=== PATIENT | female | born 1945 | race Caucasian/White ===

== ENCOUNTER → 2016-09-23 | Outpatient (CLI) | payer MEDICARE, MEDICAID | LOC: GMAM 17:41 | PROVIDERS: ATTEND Family Medicine | DX: R30.0 Dysuria (principal) ==

== ENCOUNTER → 2016-11-25 | Outpatient (CLI) | payer MEDICARE, MEDICAID | LOC: GMAM 12:02 | PROVIDERS: ATTEND Family Medicine | DX: N18.3 Chronic kidney disease, stage 3 (moderate) (principal) ==

== ENCOUNTER → 2016-11-26 | Outpatient (CLI) | payer MEDICARE, MEDICAID | END | disposition home or self-care (01) | LOC: GMA 14:56 | PROVIDERS: ATTEND Nurse Practitioner Family | DX: R82.99 Other abnormal findings in urine (principal) ==

== ENCOUNTER 2016-12-16 07:20 | Day surgery (SDC) | payer MEDICARE, MEDICAID ==
[~2016-12-16 07:20] MED LIST: LACTATED RINGERS 1,000 ML ONE
[2016-12-16 08:07] VITALS: TEMP 98.3
--- NOTE | 2016-12-16 08:41 | OP ---
DATE OF PROCEDURE: 12/16/16 PREOPERATIVE DIAGNOSIS: 1. Personal history of colonic polyps. POSTOPERATIVE DIAGNOSIS: 1. Rectosigmoid polyp, 3 mm, resected, not retrieved, using a hot snare. 2. Diverticulosis. PROCEDURE: 1. Colonoscopy. SURGEON: Дмитрий Lozoya MD. ANESTHESIA: MAC. PROCEDURE: Informed consent was obtained prior to sedation. The preprocedure cardiopulmonary assessment was satisfactory. The patient was placed in the left lateral decubitus position and was sedated. The tip of the Olympus colonoscope was inserted in the rectum and guided through the entire colon under direct visualization. The ileocecal valve and appendiceal orifice were identified. These appeared normal. Slow withdrawal was started at this time. The ileocecal valve appeared unremarkable. Careful examination was done through the entire colon. The preparation was good. There was diverticulosis in the sigmoid colon. In the rectosigmoid area, there was a 3 mm flat polyp that was resected, but not retrieved, using a hot snare. Continuation of withdrawal showed no abnormality in the rectum except for mild grade 1 internal hemorrhoids that were not bleeding. The scope was then withdrawn from the patient and the procedure was terminated. RECOMMENDATION: 1. Cologuard stool testing in three years. 2. Repeat colonoscopy in five years if Cologuard is negative in five years. If positive, repeat colonoscopy immediately. 3. Followup with GI as needed. 4. Resume medications. 5. Resume Eliquis in 48 hours. 6. Resume diet. 7. Resume regular activity tomorrow. #[id number] [facility]
[2016-12-16 10:53] VITALS: BP 156/84; O2SAT 96
[2016-12-16] MEDS ORDERED: LIDOCAINE 1% 10 ML VIAL INJ ONE (12:00)
[2016-12-16] MEDS ORDERED: PROPOFOL 200 MG/20 ML VIAL IV ONE (12:00)
== END 2016-12-16 09:30 | disposition home or self-care (01) ==
LOC: AMB 07:20
DX: Z12.11 Encounter for screening for malignant neoplasm of colon (principal); K57.30 Diverticulosis of large intestine without perforation or abscess without bleeding; D12.7 Benign neoplasm of rectosigmoid junction; K64.0 First degree hemorrhoids; J44.9 Chronic obstructive pulmonary disease, unspecified; K21.9 Gastro-esophageal reflux disease without esophagitis; I10 Essential (primary) hypertension; E66.9 Obesity, unspecified; Z68.41 Body mass index [BMI] 40.0-44.9, adult; Z86.010 Personal history of colon polyps; Z88.0 Allergy status to penicillin; Z88.2 Allergy status to sulfonamides; Z88.8 Allergy status to other drugs, medicaments and biological substances; Z80.0 Family history of malignant neoplasm of digestive organs; Z79.899 Other long term (current) drug therapy
CPT/HCPCS: 00810; 45385; J3490; J7120

== ENCOUNTER → 2016-12-29 | Outpatient (CLI) | payer MEDICARE, MEDICAID ==
--- NOTE | 2016-12-30 09:37 | MAM ---
History: Well woman exam. Date of exam: 12/29/2016 Services provided: Bilateral full field digital screening mammography. CAD, the images were reviewed with R2 computer aided detection. FINDINGS: Glandular tissue is scattered glandular contour. Exam is compared with 2011 study. No dominant mass, architectural distortion or clustered microcalcification. IMPRESSION: Benign exam Recommendation: Routine annual mammography BIRAD CATEGORY: 2 BENIGN Electronically signed by: Tahira Jaramillo MD 12/30/2016 9:36 AM CDT
== END | disposition home or self-care (01) ==
LOC: MAMMO 14:38
PROVIDERS: ATTEND Family Medicine
DX: Z12.31 Encounter for screening mammogram for malignant neoplasm of breast (principal)

== ENCOUNTER → 2017-01-15 | Outpatient (CLI) | payer MEDICARE, MEDICAID ==
--- NOTE | 2017-01-15 23:21 | CT ---
Procedure: CT CERVICAL SPINE WITHOUT IV CONTRAST Exam date: 01/15/2017 10:28 AM CDT Ordering Provider: AG WHITAKER Clinical Indication: CERVICAL DISORDER WITH MYLEOPATHY Comparison: None Technique: Using a multislice scanner, sequential axial imaging was obtained from the skull base to the T1 level. 2-D sagittal and coronal reconstruction images were obtained. Exam was reconstructed at 2 mm slice thickness. Findings: Extensive postsurgical changes of prior interbody fusions at C4-5 and C5-C6 with solid osseous bridging across the C5-6 level with partial osseous union across the C4-5 level. There is been anterior cervical fusion constructs at C2-C3 as well as between C4 and C6. Solid osseous fusion across the facet joints at C2-3 as well as partial osseous fusion across the disc spaces C2-3. There is advanced degenerative disc changes at the nonsurgical level of C3-4 with advanced facet arthrosis and trace degenerative anterolisthesis. There is also advanced degenerative disc and facet findings at C6-C7. No acute fractures versus traumatic subluxations identified. Craniocervical relationships are maintained. No evidence of hardware fracture or hardware loosening. The vertebral body heights are nonacute. There is no lytic or sclerotic lesion. The prevertebral soft tissues are normal. IMPRESSION Extensive postsurgical changes with degenerative findings at the nonsurgical C3-C4 level and C6-C7 level as outlined above. There is no acute fracture or traumatic subluxation. Electronically signed by: Prem Hobbs MD 01/15/2017 11:20 PM CDT
== END | disposition home or self-care (01) ==
LOC: CT 10:22
PROVIDERS: ATTEND Psychiatry & Neurology Neurology
DX: M47.892 Other spondylosis, cervical region (principal)

== ENCOUNTER → 2017-01-25 | Outpatient (CLI) | payer MEDICARE, MEDICAID | END | disposition home or self-care (01) | LOC: GMA 16:46 | PROVIDERS: ATTEND Nurse Practitioner Family | DX: R06.02 Shortness of breath (principal) ==

== ENCOUNTER → 2017-03-11 | Outpatient (CLI) | payer MEDICARE, MEDICAID | END | disposition home or self-care (01) | LOC: LAB.O 14:58 | PROVIDERS: ATTEND Internal Medicine | DX: M06.4 Inflammatory polyarthropathy (principal); M35.00 Sjogren syndrome, unspecified ==

== ENCOUNTER → 2017-03-24 | Outpatient (CLI) | payer MEDICARE, MEDICAID | END | disposition home or self-care (01) | LOC: NC 13:42 | PROVIDERS: ATTEND Family Medicine | DX: I13.0 Hypertensive heart and chronic kidney disease with heart failure and stage 1 through stage 4 chronic kidney disease, or unspecified chronic kidney disease (principal); I50.9 Heart failure, unspecified; N18.3 Chronic kidney disease, stage 3 (moderate) ==

== ENCOUNTER → 2017-03-31 | Outpatient (CLI) | payer MEDICARE, MEDICAID | END | disposition home or self-care (01) | LOC: GMAM 11:36 | PROVIDERS: ATTEND Family Medicine | DX: N18.3 Chronic kidney disease, stage 3 (moderate) (principal) ==

== ENCOUNTER → 2017-05-26 | Outpatient (CLI) | payer MEDICARE, MEDICAID | LOC: ICH 13:52 | PROVIDERS: ATTEND Family Medicine | DX: R30.0 Dysuria (principal) ==

== ENCOUNTER 2017-06-05 13:16 | Emergency (ER) | payer MEDICARE, MEDICAID ==
[2017-06-05] MEDS ORDERED: SODIUM CHLORIDE 0.9% 1000ML 1,000 ML IVS ONE (13:39)
[2017-06-05 13:42] VITALS: TEMP 98.5
--- NOTE | 2017-06-05 13:42 | ED.PDOC ---
History of Present Illness - General Chief Complaint: Cardiovascular Problem Stated Complaint: Elevated BP and headache x 1 hr Time Seen by Provider: 06/05/17 13:20 Source: patient, RN notes reviewed, Vital Signs reviewed Exam Limitations: no limitations - History of Present Illness Initial Comments: Patient comes in via EMS with c/o high blood pressure and JUAREZ X 1 hour. Home health nurse told patient to come to her due to BP being high. Patient took 1gm of Tylenol prior to arrival and told the nurse her JUAREZ was gone. When I saw her she said it was coming back a little and the pain was 8/10. JUAREZ was/is all over her head but worst in her R anabaptist. Denies other symptoms. Timing/Duration: 1 hour, resolved prior to arrival Severity: moderate Location: other - JUAREZ Activities at Onset: rest Improving Factors: medication - Tylenol Worsening Factors: nothing Nitro Today/Relief: no nitro taken today Aspirin Treatment Today: no aspirin today Associated Symptoms: headaches Allergies/Adverse Reactions: Allergies Gentamicin [From Gentamicin Sulfate IV] Allergy (Verified 06/05/17 13:24) Hives Penicillins Allergy (Verified 06/05/17 13:24) Other breaks out in blisters Sulfa Antibiotics Allergy (Verified 06/05/17 13:24) Vomitting Meloxicam [From Mobic] Adverse Reaction (Severe, Verified 06/05/17 13:24) Hives Home Medications: Ambulatory Orders ALPRAZolam [Xanax] 1 mg PO PRN PRN 06/05/14 Amitriptyline HCl [Elavil] 100 mg PO BEDTIME 06/05/14 Bupropion HCl [Wellbutrin Sr] 150 mg PO BID 06/05/14 Montelukast [Singulair] 10 mg PO DAILY 06/05/14 Tiotropium [place] Monohydrate [Spiriva Handihaler] 1 puff IN DAILY 06/05/14 Buprenorphine [Butrans] 15 mcg TD WKLY 09/27/15 Polyethylene Glycol 3350 [Miralax] 17 gm PO DAILY PRN 09/27/15 Simethicone [Mylanta Gas] 80 mg PO PRN PRN 09/27/15 Folic Acid 1 mg PO DAILY 01/19/16 Ipratropium/Albuterol Inhaler [Combivent Respimat 20-100 Mcg/Act] 1 aer IN PRN PRN 01/19/16 Pantoprazole Tablet [Protonix] 40 mg PO ACBK 03/26/16 Simvastatin [Zocor] 40 mg PO BEDTIME 03/26/16 Temazepam [Restoril] 15 - 30 mg PO PRN 03/26/16 Acetaminophen [Tylenol] 500 mg PO PRN PRN 04/13/16 Apixaban [Eliquis] 5 mg PO BID 04/13/16 Nebivolol HCl [Bystolic] 5 mg PO DAILY 04/13/16 Potassium Chloride [Potassium Chloride ER] 20 meq PO TID 04/13/16 Pregabalin [Lyrica] 100 mg PO BID 04/13/16 Spironolactone 25 mg PO DAILY #30 tab 04/16/16 Diltiazem HCl 120 mg PO DAILY 05/06/16 Fluticasone/Salmeterol 250/50 [Advair Diskus] 1 puff INH BID 05/06/16 Hydrochlorothiazide 25 mg PO DAILY 05/06/16 Furosemide [Lasix] 40 mg PO DAILY 12/14/16 Review of Systems - Review of Systems Constitutional: States: no symptoms reported Respiratory: States: no symptoms reported. Denies: short of breath Cardiology: States: no symptoms reported. Denies: chest pain Gastrointestinal/Abdominal: States: no symptoms reported Musculoskeletal: States: no symptoms reported Skin: States: no symptoms reported Neurological: States: headache. 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 Hx Cancer: No Hx of HIV: No Hx Hepatitis C: No Hx MRSA: No Surgical History: appendectomy - Vaccination History Hx Tetanus, Diphtheria Vaccination: Yes Hx Influenza Vaccination: Yes Hx Pneumococcal Vaccination: Yes - Social History Hx Tobacco Use: Yes - Quit 2003 Hx Chewing Tobacco Use: No Hx Alcohol Use: No Hx Substance Use: No Hx Substance Use Treatment: No Hx Depression: No Hx Physical Abuse: No Hx Emotional Abuse: No Hx Suspected Abuse: No - Female History Patient : No Family Medical History - Family History Father Family History: No Known Living Status: Age at (years of age): 85 Cause of : colon cancer Hx Family Cancer: Yes - colon Physical Exam - Physical Exam General Appearance: Alert, Comfortable - does not appear to be in pain, No apparent distress, Well Developed, Well Groomed, Well Nourished Eyes, Ears, Nose, Throat Exam: PERRL/EOMI, normal ENT inspection, pharynx normal , other - Dry mucous membranes Neck: supple, normal inspection Respiratory: lungs clear, normal breath sounds, no respiratory distress, no accessory muscle use Cardiovascular/Chest: regular rate, rhythm, no gallop, no JVD, no murmur Extremity: non-tender, normal inspection 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 She does appear dehydrated so will give 1L NS bolus and monitor BP. 06/05/17 14:22 BP now 122/68 and JUAREZ is 2/10. Will finish IV fluids and if still doing well at that time with d/c home. 06/05/17 14:54 Vital Signs 06/05/17 06/05/17 06/05/17 13:20 13:35 14:05 Temperature 98.5 F Pulse Rate [LAC 103 H 92 H 102 H ] Respiratory 14 14 14 Rate Blood Pressure 157/81 150/79 157/81 [LEFT BRACHIAL] O2 Sat by Pulse 93 L 93 L 92 L Oximetry 06/05/17 14:35 Temperature Pulse Rate [LAC 85 ] Respiratory 14 Rate Blood Pressure 122/75 [LEFT BRACHIAL] O2 Sat by Pulse 96 Oximetry Departure - Departure Clinical Impression: Dehydration Hypertension Qualifiers: Hypertension type: essential hypertension Qualified Code(s): I10 - Essential ( primary) hypertension Headache Qualifiers: Headache type: unspecified Headache chronicity pattern: acute headache Intractability: not intractable Qualified Code(s): R51 - Headache Time of Disposition: 14:53 Disposition: Discharge to Home or Self Care Condition: Good Departure Forms: ED Discharge - Pt. Copy, Patient Portal Self Enrollment Instructions: High Blood Pressure Diet: resume usual diet Activity: increase activity as tolerated Referrals: Deshawn Alonso MD [Primary Care Provider] - 1-2 Weeks Home Medications: Ambulatory Orders ALPRAZolam [Xanax] 1 mg PO PRN PRN 06/05/14 Amitriptyline HCl [Elavil] 100 mg PO BEDTIME 06/05/14 Bupropion HCl [Wellbutrin Sr] 150 mg PO BID 06/05/14 Montelukast [Singulair] 10 mg PO DAILY 06/05/14 Tiotropium [place] Monohydrate [Spiriva Handihaler] 1 puff IN DAILY 06/05/14 Buprenorphine [Butrans] 15 mcg TD WKLY 09/27/15 Polyethylene Glycol 3350 [Miralax] 17 gm PO DAILY PRN 09/27/15 Simethicone [Mylanta Gas] 80 mg PO PRN PRN 09/27/15 Folic Acid 1 mg PO DAILY 01/19/16 Ipratropium/Albuterol Inhaler [Combivent Respimat 20-100 Mcg/Act] 1 aer IN PRN PRN 01/19/16 Pantoprazole Tablet [Protonix] 40 mg PO ACBK 03/26/16 Simvastatin [Zocor] 40 mg PO BEDTIME 03/26/16 Temazepam [Restoril] 15 - 30 mg PO PRN 03/26/16 Acetaminophen [Tylenol] 500 mg PO PRN PRN 04/13/16 Apixaban [Eliquis] 5 mg PO BID 04/13/16 Nebivolol HCl [Bystolic] 5 mg PO DAILY 04/13/16 Potassium Chloride [Potassium Chloride ER] 20 meq PO TID 04/13/16 Pregabalin [Lyrica] 100 mg PO BID 04/13/16 Spironolactone 25 mg PO DAILY #30 tab 04/16/16 Diltiazem HCl 120 mg PO DAILY 05/06/16 Fluticasone/Salmeterol 250/50 [Advair Diskus] 1 puff INH BID 05/06/16 Hydrochlorothiazide 25 mg PO DAILY 05/06/16 Furosemide [Lasix] 40 mg PO DAILY 12/14/16
[2017-06-05 15:42] VITALS: BP 153/79; O2SAT 95
== END 2017-06-05 15:40 | disposition home or self-care (01) ==
LOC: ER 13:16
DX: R51 Headache (principal); I10 Essential (primary) hypertension; E86.0 Dehydration; J44.9 Chronic obstructive pulmonary disease, unspecified; Z90.5 Acquired absence of kidney; Z87.891 Personal history of nicotine dependence; Z79.899 Other long term (current) drug therapy; Z88.0 Allergy status to penicillin; Z88.2 Allergy status to sulfonamides; Z88.8 Allergy status to other drugs, medicaments and biological substances

== ENCOUNTER → 2017-07-14 | Outpatient (CLI) | payer MEDICARE, MEDICAID | END | disposition home or self-care (01) | LOC: GMA 17:32 | PROVIDERS: ATTEND Physician Assistant | DX: R53.81 Other malaise (principal) ==

== ENCOUNTER → 2017-08-02 | Outpatient (CLI) | payer MEDICARE, MEDICAID | END | disposition home or self-care (01) | LOC: GMAM 20:13 | PROVIDERS: ATTEND Family Medicine | DX: I48.2 Chronic atrial fibrillation (principal); R06.02 Shortness of breath ==

== ENCOUNTER → 2017-08-02 | Outpatient (CLI) | payer MEDICARE, MEDICAID | LOC: NC 09:52 | PROVIDERS: ATTEND Family Medicine | DX: I13.0 Hypertensive heart and chronic kidney disease with heart failure and stage 1 through stage 4 chronic kidney disease, or unspecified chronic kidney disease (principal); I50.9 Heart failure, unspecified; N18.3 Chronic kidney disease, stage 3 (moderate); I48.91 Unspecified atrial fibrillation; J44.9 Chronic obstructive pulmonary disease, unspecified ==

== ENCOUNTER → 2017-10-14 | Outpatient (CLI) | payer MEDICARE, MEDICAID | LOC: GMAM 10:45 | PROVIDERS: ATTEND Family Medicine | DX: R94.6 Abnormal results of thyroid function studies (principal); R94.7 Abnormal results of other endocrine function studies ==

== ENCOUNTER → 2017-12-27 | Outpatient (CLI) | payer MEDICARE, MEDICAID | END | disposition home or self-care (01) | LOC: LAB.O 12-24 16:03 | PROVIDERS: ATTEND Nurse Practitioner Family | DX: M06.4 Inflammatory polyarthropathy (principal); M06.9 Rheumatoid arthritis, unspecified; M79.7 Fibromyalgia ==

== ENCOUNTER → 2017-12-29 | Outpatient (CLI) | payer MEDICARE, MEDICAID | LOC: GMAM 12:11 | PROVIDERS: ATTEND Family Medicine | DX: N18.3 Chronic kidney disease, stage 3 (moderate) (principal) ==

== ENCOUNTER → 2018-01-11 | Outpatient (CLI) | payer MEDICARE, MEDICAID | LOC: GMAJS 14:54 | PROVIDERS: ATTEND Physician Assistant | DX: R30.0 Dysuria (principal) ==

== ENCOUNTER → 2018-01-19 | Outpatient (CLI) | payer MEDICARE, MEDICAID ==
--- NOTE | 2018-01-20 15:26 | MAM ---
EXAM DESCRIPTION: 3D Screening BILATERAL : Digital Mammography. CLINICAL HISTORY: 72 years Female SCREENING . No complaints. Remote family history of breast cancer. Sister with ovarian cancer. Hysterectomy. Has taken HRT 5 or more years ago. COMPARISON: 2-D digital screening bilateral study 12/29/2016. Report from prior examination also reviewed. TECHNIQUE: Bilateral CC and MLO projection full-field images, 3-D tomosynthesis digital mammographic technique. Also bilateral synthesized CC/ MLO full-field images. CAD not utilized. FINDINGS: The breast parenchymal density pattern is: Scattered areas of fibroglandular density. No skin thickening or nipple retraction bilateral axillary lymph nodes. No focal, stellate mass or density, focal asymmetry , and no suspicious microcalcifications bilaterally. Stable mammograms compared to prior study, taking into account differences in mammographic technique IMPRESSION: BI-RADS CATEGORY: 2 - BENIGN FINDINGS. FOLLOW UP: Routine digital bilateral screening, one year interval from January 2018. Written communication explaining the IMPRESSION and follow-up, will be mailed to the patient and referring health care provider. According to the [employer], yearly mammograms are recommended starting at age 40 and continuing as long as a woman is in good health. Any breast change noted on a breast self-exam should be reported promptly to the patient's healthcare provider. Breast MRI is recommended for women with an approximately 20-25% or greater lifetime risk of breast cancer, including women with a strong family history of breast or ovarian cancer and women who have been treated for Hodgkin's disease. A negative mammographic report should not delay tissue diagnosis in patients with significant clinical history or physical findings. Extremely dense breast tissue limits the sensitivity of digital mammography. Electronically signed by: Zach Franco MD 01/20/2018 3:25 PM CDT
== END ==
LOC: MAMMO 13:52
PROVIDERS: ATTEND Family Medicine
DX: Z12.31 Encounter for screening mammogram for malignant neoplasm of breast (principal)

== ENCOUNTER → 2018-02-01 | Outpatient (CLI) | payer MEDICARE, MEDICAID | LOC: GMAM 14:38 | PROVIDERS: ATTEND Family Medicine | DX: R30.0 Dysuria (principal) ==

== ENCOUNTER → 2018-03-10 | Outpatient (CLI) | payer MEDICARE, MEDICAID | LOC: GMAM 17:38 | PROVIDERS: ATTEND Family Medicine | DX: E21.3 Hyperparathyroidism, unspecified (principal); R53.83 Other fatigue ==

== ENCOUNTER → 2018-03-30 | Outpatient (CLI) | payer MEDICARE, MEDICAID | LOC: LAB.O 10:12 | PROVIDERS: ATTEND Internal Medicine Endocrinology, Diabetes & Metabolism | DX: R10.13 Epigastric pain (principal); R19.7 Diarrhea, unspecified; E55.9 Vitamin D deficiency, unspecified; N18.9 Chronic kidney disease, unspecified; E21.3 Hyperparathyroidism, unspecified ==

== ENCOUNTER 2018-04-04 13:10 | Inpatient (IN) | payer MEDICARE, MEDICAID ==
[2018-04-04] MEDS ORDERED: ONDANSETRON INJ 4 MG/2 ML VIAL IV ONE (14:22)
[2018-04-04] MEDS ORDERED: SODIUM CHLORIDE 0.9% 1000ML 1,000 ML IVS PRN (14:22)
[2018-04-04] MEDS ORDERED: SODIUM CHLORIDE 0.9% (FLUSH) 10 ML SYG IV PRN ×2 (14:22→18:27)
[2018-04-04] MEDS ORDERED: MORPHINE SULFATE INJ 10 MG/ML VIAL IV ONE ×2 (14:24→17:53)
[2018-04-04] MEDS ORDERED: ACETAMINOPHEN 500 MG TAB PO ONE (15:12)
--- NOTE | 2018-04-04 16:04 | CT ---
Study: CT abdomen and pelvis. Indication: abd pain, nausea, diarrhea Technique: CT of the abdomen and pelvis obtained without intravenous contrast. This exam was performed according to our departmental dose-optimization program, which includes automated exposure control, adjustment of the mA and/or kV according to patient size and/or use of iterative reconstruction technique. Comparison: July 15, 2016. Findings: Emphysema at the lung bases suspected with bibasilar scarring. Heart size normal. Coronary artery and abdominal aortic atherosclerosis. Questionable mild nodularity of the liver contour which can indicate cirrhosis. Gallbladder distended with a suspected 4 mm internal gallstone posteriorly. Pancreas, spleen, adrenal glands, left kidney, and bladder unremarkable. Prior right nephrectomy redemonstrated. Uterus and ovaries are either surgically absent or small. Fluid noted throughout the colon which can be seen in a diarrheal state. There is mild wall thickening of the descending colon with mild fluid in the left paracolic gutter which can indicate colitis. No obstruction. Stomach and small bowel unremarkable. Tendinosis not visualized. No free air. No pathologically enlarged lymphadenopathy. Degenerative and post surgical changes of the spine noted. Impression: Colitis of the mid decending colon. Suspected cirrhosis. Atherosclerosis. Suspected emphysema. Prior right nephrectomy. Suspected tiny gallstone. Right upper quadrant sonogram could better evaluate as clinically indicated. Additional findings as above. Electronically signed by: Ru De Jesus MD 04/04/2018 4:03 PM CDT
--- NOTE | 2018-04-04 17:23 | ED.PDOC ---
History of Present Illness - General Chief Complaint: GI Problem Stated Complaint: diarrhea x10 days Time Seen by Provider: 04/04/18 13:48 Information Source: patient Exam Limitations: no limitations - History of Present Illness Initial Comments: PT PRESENTS TO THE ED WITH COMPLAINTS OF ABDOMINAL PAIN, DIARRHEA, GENERALIZED WEAKNESS, AND NAUSEA FOR THE PAST 10 DAYS. PT REPORTS THAT SHE SAW HER PCP LAST WEEK AND HAD BLOOD WORK DONE, BUT DOES NOT KNOW THE RESULTS OF IT. Abdominal Pain Onset Location: RLQ, epigastric Quality: sharpness Timing/Duration: days - 10 Improving Factors: nothing Associated Symptoms: diarrhea, fatigue, nausea/vomiting, weakness Review of Systems - Review of Systems Constitutional: States: chills, malaise, weakness. Denies: fever EENTM: Denies: nose congestion, throat pain Respiratory: Denies: cough, short of breath Cardiology: Denies: chest pain, palpitations Gastrointestinal/Abdominal: States: see HPI, abdominal pain, diarrhea, nausea Genitourinary: Denies: dysuria, frequency Musculoskeletal: Denies: joint pain, joint swelling Skin: Denies: dryness, lesions Neurological: Denies: headache, numbness Past Medical History (General) - Patient Medical History Hx Seizures: No Hx Stroke: No Hx Dementia: No Hx Asthma: Yes Hx of COPD: Yes Hx Cardiac Disorders: No Hx Congestive Heart Failure: Yes Hx Pacemaker: No Hx Hypertension: Yes Hx Thyroid Disease: No Hx Diabetes: No Hx Gastroesophageal Reflux: No 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 Hx Cancer: No Hx of HIV: No Hx Hepatitis C: No Hx MRSA: No - Vaccination History Hx Tetanus, Diphtheria Vaccination: Yes Hx Influenza Vaccination: Yes Hx Pneumococcal Vaccination: Yes - Social History Hx Tobacco Use: Yes - Quit 2003 Hx Chewing Tobacco Use: No Hx Alcohol Use: No Hx Substance Use: No Hx Substance Use Treatment: No Hx Depression: No Hx Physical Abuse: No Hx Emotional Abuse: No Hx Suspected Abuse: No - Female History Patient : No Family Medical History - Family History Father Family History: No Known Living Status: Age at (years of age): 85 Cause of : colon cancer Hx Family Cancer: Yes - colon Physical Exam - Physical Exam General Appearance: Alert, Ill Appearing, Well Developed, Well Groomed Eyes, Ears, Nose, Throat Exam: normal ENT inspection Neck: normal inspection Respiratory: lungs clear, normal breath sounds, no respiratory distress Cardiovascular/Chest: regular rate, rhythm, no murmur Gastrointestinal/Abdominal: soft, tenderness - IN THE EPIGASTRIC AND RLQ Back Exam: no CVA tenderness Extremity: non-tender, normal inspection Neurologic: alert, normal mood/affect, oriented x 3 Skin Exam: warm/dry, pallor Progress - Progress Progress: 04/04/18 17:27 PT REPORTS SOME IMPROVEMENT IN SYMPTOMS AFTER MORPHINE AND ZOFRAN. RATES PAIN AT 5/10 AT THIS TIME. LABS AND DIAGNOSTIC STUDIES DISCUSSED. - Results/Orders Results/Orders: Laboratory Tests 04/04/18 04/04/18 04/04/18 14:30 14:45 14:45 WBC 7.8 RBC 3.74 L Hgb 11.5 L Hct 34.6 L MCV 92.5 MCH 30.7 MCHC 33.2 RDW 14.8 H Plt Count 205 MPV 10.6 H Absolute Neuts (auto) 6.20 Absolute Lymphs (auto) 0.50 L Absolute Monos (auto) 1.00 H Absolute Eos (auto) 0.10 Absolute Basos (auto) 0.00 Neutrophils % 79.0 H Lymphocytes % 6.9 L Monocytes % 12.9 H Eosinophils % 0.8 L Basophils % 0.4 Sodium 136 Potassium 4.4 Chloride 105 Carbon Dioxide 21 Anion Gap 14.4 BUN 8 Creatinine 0.88 BUN/Creatinine Ratio 9.1 L Random Glucose 100 Serum Osmolality 270.4 L Calcium 8.9 Total Bilirubin 1.3 H Direct Bilirubin 0.4 H Indirect Bilirubin 0.9 H AST 31 ALT 18 Alkaline Phosphatase 67 Serum Total Protein 7.2 Albumin 3.2 Lipase 15 L Urine Color Yellow Urine Appearance Clear Urine pH 6.0 Ur Specific Gerald 1.025 Urine Protein 30 Urine Glucose (UA) Negative Urine Ketones 15 H Urine Blood Negative Urine Nitrite Negative Urine Bilirubin Small H Urine Urobilinogen 1.0 Ur Leukocyte Esterase Negative Urine RBC 0-1 Urine WBC 1-3 Ur Epithelial Cells 10-20 Amorphous Sediment 2+ Urine Bacteria 1+ Urine Mucus Large Stool Occult Blood 04/04/18 16:27 WBC RBC Hgb Hct MCV MCH MCHC RDW Plt Count MPV Absolute Neuts (auto) Absolute Lymphs (auto) Absolute Monos (auto) Absolute Eos (auto) Absolute Basos (auto) Neutrophils % Lymphocytes % Monocytes % Eosinophils % Basophils % Sodium Potassium Chloride Carbon Dioxide Anion Gap BUN Creatinine BUN/Creatinine Ratio Random Glucose Serum Osmolality Calcium Total Bilirubin Direct Bilirubin Indirect Bilirubin AST ALT Alkaline Phosphatase Serum Total Protein Albumin Lipase Urine Color Urine Appearance Urine pH Ur Specific Gerald Urine Protein Urine Glucose (UA) Urine Ketones Urine Blood Urine Nitrite Urine Bilirubin Urine Urobilinogen Ur Leukocyte Esterase Urine RBC Urine WBC Ur Epithelial Cells Amorphous Sediment Urine Bacteria Urine Mucus Stool Occult Blood Positive - EKG/XRAY/CT EKG: Sinus - @75 BPM, NL INTERVALS, NL AXIS, no ST T wave changes, Unchanged from - 03/26/2016 CT: CT ABD: COLITIS, POSSIBLE CHOLELITHIASIS, PER RAD CT Ordered: Yes CT Interpretation Call Back: No Departure - Departure Clinical Impression: Acute diarrhea, Colitis, Dehydration Time of Disposition: 17:31 Disposition: Admit Patient Condition: Fair Departure Forms: ED Discharge - Pt. Copy, Patient Portal Self Enrollment Referrals: Deshawn Alonso MD [Primary Care Provider] - 1-2 Weeks Home Medications: Ambulatory Orders ALPRAZolam [Xanax] 1 mg PO PRN PRN 06/05/14 Amitriptyline HCl [Elavil] 100 mg PO BEDTIME 06/05/14 Bupropion HCl [Wellbutrin Sr] 150 mg PO BID 06/05/14 Montelukast [Singulair] 10 mg PO DAILY 06/05/14 Tiotropium [place] Monohydrate [Spiriva Handihaler] 1 puff IN DAILY 06/05/14 Buprenorphine [Butrans] 15 mcg TD WKLY 09/27/15 Polyethylene Glycol 3350 [Miralax] 17 gm PO DAILY PRN 09/27/15 Simethicone [Mylanta Gas] 80 mg PO PRN PRN 09/27/15 Folic Acid 1 mg PO DAILY 01/19/16 Ipratropium/Albuterol Inhaler [Combivent Respimat 20-100 Mcg/Act] 1 aer IN PRN PRN 01/19/16 Pantoprazole Tablet [Protonix] 40 mg PO ACBK 03/26/16 Simvastatin [Zocor] 40 mg PO BEDTIME 03/26/16 Temazepam [Restoril] 15 - 30 mg PO PRN 03/26/16 Acetaminophen [Tylenol] 500 mg PO PRN PRN 04/13/16 Apixaban [Eliquis] 5 mg PO BID 04/13/16 Nebivolol HCl [Bystolic] 5 mg PO DAILY 04/13/16 Potassium Chloride [Potassium Chloride ER] 20 meq PO TID 04/13/16 Pregabalin [Lyrica] 100 mg PO BID 04/13/16 Spironolactone 25 mg PO DAILY #30 tab 04/16/16 Diltiazem HCl 120 mg PO DAILY 05/06/16 Fluticasone/Salmeterol 250/50 [Advair Diskus] 1 puff INH BID 05/06/16 Hydrochlorothiazide 25 mg PO DAILY 05/06/16 Furosemide [Lasix] 40 mg PO DAILY 12/14/16 Decision To Admit - Decistion To Admit Decision to Admit Reason: Admit from ER Decision to Admit Date: 04/04/18 Decision to Admit Time: 17:31 - CASE DISCUSSED WITH ASHLEY MCNALLY NP WHO AGREES TO ADMIT
--- NOTE | 2018-04-04 17:47 | HP ---
SUPERVISING PHYSICIAN: Dale Jones M.D. CHIEF COMPLAINT: Diarrhea. HISTORY OF PRESENT ILLNESS: This is a 72 year-old female with an extensive past medical history who came to the hospital for diarrhea basically since March 25. She states she has some nausea and vomiting along the way as well with that stopping a couple of days ago. She continues to have the diarrhea and thus came to the Emergency Room. In the Emergency Room her workup included not only labs but CT Scan of the abdomen and pelvis. CT scan of the abdomen and pelvis revealed a mid descending colon colitis but no surgical indication was noted. Her labs were pretty much unremarkable although she did have a left shift with 79% neutrophils. White count was normal. She had a hemoglobin of 11.5. It should be noted that the patient has a history of rheumatoid arthritis and is on Arava. She is no longer taking any steroids. She had a stool sample sent to the lab out of the Emergency Room and so far negative for Clostridium Difficile, however fecal leukocyte positive. So far vital signs have been acceptable. She did have a fever in the Emergency Room of 99.7 but it has now come back down to 98.1. PAST MEDICAL HISTORY: 1. Atrial fibrillation. 2. Congestive heart failure. 3. Hyperlipidemia. 4. Hypertension. 5. Chronic obstructive pulmonary disease. 6. Rheumatoid arthritis for which she sees Dr. Montgomery in [place]. 7. Cervical disc disease with cervical radiculopathy. 8. Lumbar radiculopathy as well. 9. Chronic inflammatory demyelinating polyneuritis. PAST SURGICAL HISTORY: 1. Right sided hernia repair. 2. Cervical spine fusion. 3. Lumbar spine fusion times 2. 4. Right kidney nephrectomy. 5. Hysterectomy. 6. Colonoscopy. CURRENT MEDICATIONS: 1. Linzess 290 mcg once daily when needed. 2. Protonix 40 mg p.o. daily. 3. Spironolactone 25 mg 2 tabs by mouth daily. 4. Temazepam 30 mg by mouth at bedtime. 5. Prolia 60 mg subcutaneously every 6 months. 6. MiraLAX 17 grams, 1 packet in 8 ounces of water daily. 7. Ventolin 90 mcg one puff by mouth as needed. 8. Wellbutrin 150 mg tablet sustained release 2 tabs by mouth b.i.d. 9. Advair 250/50 one puff b.i.d. 10. Singulair 10 mg p.o. daily. 11. Spiriva 18 mcg capsule 1 puff daily. 12. Acetaminophen 500 mg 1 to 2 tabs by mouth every 6 hours p.r.n. 13. Eliquis 5 mg p.o. b.i.d. 14. Xanax 1 mg 1 tab every day. 15. Arava 20 mg 1 tab daily. 16. Bystolic 5 mg every morning. 17. Vitamin D3, 2000 mg daily. 18. Myrbetriq SR 25 mg daily. 19. Folic acid 1 mg b.i.d. 20. Hydroxychloroquine 200 mg b.i.d. ALLERGIES: ADHESIVE, ATENOLOL, GENTAMICIN, METHOTREXATE, PENICILLIN, MOBIC, SULFONAMIDE, CODEINE, OXYCODONE, TOPAMAX AND PLAQUENIL. FAMILY HISTORY: Colon cancer in her father, maternal grandfather, paternal uncle and paternal aunt. Positive for asthma in her sister. Cirrhosis in her mother. Mother at 72 of cirrhosis. SOCIAL HISTORY: The patient quit smoking in 2003. No alcohol. No illicit drugs. She is disabled. REVIEW OF SYSTEMS: CONSTITUTIONAL: Positive for fever. No chills. No recent weight loss or weight gain. HEENT: No headaches, vision changes, ear pain, nasal congestion or throat pain. RESPIRATORY: No cough or hemoptysis. No pleuritic chest pain. She has had some shortness of breath but this is chronic for her. CARDIOVASCULAR: The patient has no chest pain. No palpitations. She does have peripheral edema but that is chronic for her. GASTROINTESTINAL: Positive for nausea and vomiting, diarrhea. No constipation. She has had some abdominal pain on the right. GENITOURINARY: No dysuria, frequency or flank pain. MUSCULOSKELETAL: No joint pain, joint swelling, but she has had some back pain which is chronic. HEMATOLOGIC: Positive for easy bruising but no transfusion reaction. ENDOCRINE: No polydipsia, polyuria or polyphagia. No heat or cold intolerance. NEUROLOGIC: No syncope, paresthesias or seizures. INTEGUMENT: No rashes, lesions or wounds. PHYSICAL EXAMINATION: VITAL SIGNS: Blood pressure 114/69, heart rate 69, respiratory rate 18, temperature 98.1, oxygen saturation 97%. GENERAL: Ms. Donaldson is a 72 year-old female who is acutely ill in appearance at this point. HEENT: Head is normocephalic and atraumatic. EYES: Pupils are equal and reactive. NOSE: No drainage. THROAT: With dry mucosa. NECK: Supple. Midline trachea. There is no visible jugular venous distention. CHEST: Symmetrical with equal rise and fall of the chest with inspiration and expiration. Lung sounds are a little bit diminished in the bases but otherwise clear to auscultation bilaterally. CARDIOVASCULAR: Regular rate and rhythm. Normal S1 and S2. ABDOMEN: Soft, obese. Positive bowel sounds. No visible distention. There is some right sided tenderness to palpation. No rebound tenderness but the abdomen is soft. GENITOURINARY: Deferred. EXTREMITIES: Lower extremities with 1+ edema. Pulses are 2+. Capillary refill less than 2 seconds. NEUROLOGIC: The patient is alert and oriented. Moves all extremities. Extraocular movements are intact. LABORATORY: Labs and films are discussed in the history of present illness. ASSESSMENT: 1. Right mid descending colitis. 2. Diarrhea. 3. Dehydration. 4. History of rheumatoid arthritis on immunosuppressant medications. 5. Chronic anemia. 6. History of chronic obstructive pulmonary disease without an acute exacerbation. 7. History of hypertension with a currently controlled blood pressure. 8. History of atrial fibrillation on chronic Eliquis therapy. PLAN: At this point the patient is having controlled pain but evidence of colitis on CT scan and on physical exam. Will place her on empiric antibiotics and get blood cultures as well. She is on immunosuppressant medications so we need to treat this as though it is infectious. I am also placing her on IV fluids. She does have sclerosis so there is always the possibility this is ischemic in nature. Will continue to monitor her progress and if she worsens we can get a surgical consultation. I am going to restart her Eliquis and put her on GI ulcer prophylaxis as well. I will restart her home medications once they are verified in the computer. Although her labs are pretty much unremarkable as stated above she is immunocompromised and I feel like she does have an infectious colitis at this time. I have ordered additional tests be run on the stool as well. [facility][id number] [facility]
[2018-04-04] MEDS ORDERED: ONDANSETRON INJ 4 MG/2 ML VIAL IV PRN (18:27)
[2018-04-04] MEDS ORDERED: levoFLOXacin 500MG IV 100 ML IVPB ONE (18:55)
[2018-04-04] MEDS: levoFLOXacin 500MG IV 500 MG in PREMIX BAG 1 BAG IVPB SCH (18:58)
[2018-04-04] MEDS ORDERED: PANTOPRAZOLE SODIUM IV 40 MG VIAL IV SCH (19:00)
[2018-04-04] MEDS ORDERED: metroNIDAZOLE IV PREMIX 500MG 100 ML IVPB ONE (19:21)
[2018-04-04] MEDS: IV SET AND CAP CHANGE INJ INJ SCH (19:29)
[2018-04-04] MEDS: SODIUM CHLORIDE 0.9% 1000ML 1,000 ML IVS PRN (19:32)
[2018-04-04] MEDS: metroNIDAZOLE IV PREMIX 500MG 500 MG in PREMIX BAG 1 BAG IVPB SCH (20:14)
[2018-04-04] MEDS ORDERED: ALPRAZolam 0.5 MG TAB PO PRN (21:07)
[2018-04-04] MEDS ORDERED: NON-FORMULARY MEDICATION 1 EA MIS (Denosumab [Prolia] 60 MG) SC SCH (21:15)
[2018-04-04] MEDS ORDERED: ALBUTEROL SULFATE 2.5 MG/3 ML VIAL NEB PRN (21:42)
[2018-04-04] MEDS: TEMAZEPAM 15 MG CAP PO SCH (22:22)
[2018-04-04] MEDS ORDERED: APIXABAN 2.5 MG TAB PO ONE (22:30)
[2018-04-05] MEDS ORDERED: metroNIDAZOLE IV PREMIX 500MG 100 ML IVPB ONE ×4 (02:52→19:54)
[2018-04-05] MEDS: metroNIDAZOLE IV PREMIX 500MG 500 MG in PREMIX BAG 1 BAG IVPB SCH ×3 (03:00→18:49)
[2018-04-05] MEDS: SODIUM CHLORIDE 0.9% 1000ML 1,000 ML IVS PRN (06:04)
[2018-04-05] MEDS: FLUTICASONE/SALMETEROL 250/50 14 PUFF/17 GM INH INH SCH ×2 (08:35→20:24)
[2018-04-05] MEDS: TIOTROPIUM INHALER INH SCH (08:35)
[2018-04-05] MEDS: NON-FORMULARY MEDICATION 1 EA MIS (Mirabegron [Myrbetriq] 25 MG) PO SCH (09:00)
[2018-04-05] MEDS ORDERED: NON-FORMULARY MEDICATION 1 EA MIS (Apixaban [Eliquis] 5 MG) PO SCH (09:00)
[2018-04-05] MEDS ORDERED: NEBIVOLOL 2.5 MG TAB ONE (09:28)
[2018-04-05] MEDS: FOLIC ACID 1 MG TAB PO SCH ×2 (10:36→20:31)
[2018-04-05] MEDS: SPIRONOLACTONE 25 MG TAB PO SCH (10:36)
[2018-04-05] MEDS: MONTELUKAST 10 MG TAB PO SCH (10:36)
[2018-04-05] MEDS: PANTOPRAZOLE SODIUM TAB 40 MG PO SCH (10:36)
[2018-04-05] MEDS: NON-FORMULARY MEDICATION 1 EA MIS (Nebivolol Hcl [Bystolic] 5 MG) PO SCH ×2 (10:38→10:57)
--- NOTE | 2018-04-05 10:46 | PN ---
SUPERVISING PHYSICIAN: Dale Jones MD DATE: 04/05/18 SUBJECTIVE: The patient states she does feel a little bit better than she did yesterday, but still is having bouts of diarrhea. She still has residual abdominal pain although it is less than yesterday. She is not having any nausea or vomiting and is tolerating the clear liquid diet fair at this time. OBJECTIVE: VITAL SIGNS: Blood pressure 101/58. Heart rate 82. Respiratory rate 18. Temperature 98.2. Oxygen saturation 96%. GENERAL: Ms. Donaldson is a 72-year-old female in no active distress. NEUROLOGIC: Alert and oriented. LUNGS: Clear to auscultation bilaterally. CARDIOVASCULAR: Regular rate and rhythm. Normal S1, S2. ABDOMEN: Still obese, but soft. Positive bowel sounds. Minimal right sided tenderness to palpation. GENITOURINARY: Deferred. EXTREMITIES: Lower extremities with 2+ pulses. Capillary refill is less than 2 seconds. LABORATORY: White count 6.3, hemoglobin 10.3, hematocrit 31.2, platelet count 171. There is no left shift on the CBC. Chemistry is unremarkable, but does show normalization of the bilirubin at 7.7 whereas yesterday it was 1.3. So far blood cultures are still pending as well as stool studies that were ordered yesterday on top of the C. difficile and fecal leukocytes are send outs, so they are not resulted as of yet. ASSESSMENT: 1. Right sided mid descending colitis. 2. Diarrhea. 3. Dehydration. 4. History of rheumatoid arthritis on immunosuppressant medications. 5. Chronic anemia. 6. History of chronic obstructive pulmonary disease without an acute exacerbation. 7. History of hypertension with a currently controlled blood pressure. 8. History of atrial fibrillation on chronic Eliquis therapy. PLAN: At this point, her blood work remains stable. However, as stated before , she is on immunosuppressant medications on a chronic basis. Therefore, we cannot totally rely on her lab work being abnormal as being indicative of infection. We will continue the Levaquin and Flagyl at this time. She seems to be improving slowly, so we will continue these and watch for results of the blood cultures and stool studies. I am going to increase her diet to full liquid today and see how she does with that. I will recheck her labs tomorrow. I am going to change her IV fluids to include potassium as she has had a bit of a decline in potassium although it is still within normal limits. #[id number] [facility]
[2018-04-05] MEDS: CHOLECALCIFEROL 2,000 IU TAB PO SCH (12:09)
[2018-04-05] MEDS: KCL 20 MEQ/NS 1,000 ML IVS PRN (16:30)
[2018-04-05] MEDS ORDERED: levoFLOXacin 500MG IV 100 ML IVPB ONE (17:22)
[2018-04-05] MEDS: levoFLOXacin 500MG IV 500 MG in PREMIX BAG 1 BAG IVPB SCH (17:46)
[2018-04-05] MEDS: APIXABAN 2.5 MG TAB PO SCH (20:30)
[2018-04-05] MEDS: ACETAMINOPHEN 500 MG TAB PO PRN (23:51)
[2018-04-06] MEDS: TEMAZEPAM 15 MG CAP PO SCH (00:06)
[2018-04-06] MEDS: metroNIDAZOLE IV PREMIX 500MG 500 MG in PREMIX BAG 1 BAG IVPB SCH ×3 (02:54→18:31)
[2018-04-06] MEDS: KCL 20 MEQ/NS 1,000 ML IVS PRN ×2 (04:34→14:32)
[2018-04-06] MEDS ORDERED: metroNIDAZOLE IV PREMIX 500MG 100 ML IVPB ONE ×3 (07:34→19:26)
[2018-04-06] MEDS: FLUTICASONE/SALMETEROL 250/50 14 PUFF/17 GM INH INH SCH ×2 (08:27→21:21)
[2018-04-06] MEDS: TIOTROPIUM INHALER INH SCH (08:27)
[2018-04-06] MEDS: SPIRONOLACTONE 25 MG TAB PO SCH (09:39)
[2018-04-06] MEDS: NEBIVOLOL 2.5 MG TAB PO SCH (09:39)
[2018-04-06] MEDS: FOLIC ACID 1 MG TAB PO SCH ×2 (09:40→22:02)
[2018-04-06] MEDS: APIXABAN 2.5 MG TAB PO SCH ×2 (09:40→22:04)
[2018-04-06] MEDS: NON-FORMULARY MEDICATION 1 EA MIS (Mirabegron [Myrbetriq] 25 MG) PO SCH (09:41)
[2018-04-06] MEDS: PANTOPRAZOLE SODIUM TAB 40 MG PO SCH (09:42)
[2018-04-06] MEDS: MONTELUKAST 10 MG TAB PO SCH (09:42)
[2018-04-06] MEDS: ACETAMINOPHEN 500 MG TAB PO PRN ×2 (09:43→22:01)
[2018-04-06] MEDS: CHOLECALCIFEROL 2,000 IU TAB PO SCH (09:43)
[2018-04-06] MEDS ORDERED: POTASSIUM CHLORIDE 20 MEQ TAB PO ONE ×2 (10:19→11:00)
[2018-04-06] MEDS ORDERED: POTASSIUM CHLORIDE 20 MEQ TAB ONE (10:36)
[2018-04-06] MEDS: KCL 20MEQ/0.45% NS 1,000 ML IVS PRN (15:03)
--- NOTE | 2018-04-06 15:12 | US ---
EXAM DESCRIPTION: Abdomen,Complete: Ultrasound. CLINICAL HISTORY: abd pain COMPARISON: None Available. TECHNIQUE: Transabdominal scannin-dimensional and Doppler modes. FINDINGS: Gallbladder: Visualized supine but difficult visualization left lateral decubitus. No echogenic stones or sludge. Wall thickness 2.6 mm with no fluid. Nontender with transducer pressure. Common bile duct: 8.9 mm which is dilated. Liver: 9.4 cm long axis right lobe. Normal echogenicity. Scalloped edges of the liver. Portal vein normal caliber and hepatopedal flow. No duct dilation. No ascites. Pancreas: Normal size and echogenicity. Duct not seen.. Abdominal aorta: 2.1 cm proximal and 1.9 cm mid. Distal aorta obscured by intestinal gas. IVC: visualized; normal caliber. Spleen normal echogenicity; long axis measurement is 10.3 cm. cm. Right kidney: Prior nephrectomy. Left kidney: 10.3 cm long axis. Normal cortical thickness and echogenicity. No hydronephrosis. IMPRESSION: 1. Normal ultrasound of the gallbladder but difficult to visualize and left lateral decubitus position. Common bile duct dilated, and intraluminal stones or sludge cannot be excluded. Consider radionuclide hepatobiliary imaging. 2. Liver small with scalloped edges but normal echogenicity. Is there history of cirrhosis or other chronic liver conditions? Normal portal vein size and flow. Normal intrahepatic ducts. No cirrhosis. Normal ultrasound of the pancreas. 3. normal ultrasound of the left kidney and spleen. Prior right nephrectomy. Normal caliber of the proximal and mid abdominal aorta and the IVC. Distal aorta obscured by intestinal gas. Electronically signed by: Zach Franco MD 04/06/2018 3:11 PM CDT
--- NOTE | 2018-04-06 16:41 | PN ---
DATE: 04/06/18 SUPERVISING PHYSICIAN: Guero Wood M.D. SUBJECTIVE: The patient is lying in bed. Continue complaints of diffuse abdominal pain but most prominently in the epigastric area. She has had no vomiting but she does get a little bit nauseous even with her clear liquid diet , although her appetite is getting better and she is somewhat hungry. Otherwise denies shortness of breath, chest pain. OBJECTIVE: VITAL SIGNS: She is afebrile, heart rate 75, blood pressure 127/71, respiratory rate 20, O2 sat 96% on room air. Intake 2600 mL, output 1500 mL for an 1100 positive balance. RESPIRATORY: Essentially clear to auscultation bilaterally. CARDIAC: Regular rate and rhythm. ABDOMEN: Very mildly but diffusely tender. It is slightly more tender in the epigastric area. There is no rebound tenderness or guarding. Bowel sounds are positive. NEUROLOGIC: She is awake, alert and oriented times three. LABORATORY: WBCs are 5.7 with a stable hemoglobin and history of 10.5 and 32.3. Sodium 139, potassium is slightly low at 3.5, chloride 112, BUN is less than 5, creatinine 0.9. Serum osmolality is 273.6. Stool studies are still pending. Preliminary blood cultures show no growth after 24 hours. All other labs and films have been reviewed via the EMR. ASSESSMENT: 1. Right sided mid descending colitis. 2. Diarrhea. 3. Dehydration. 4. History of rheumatoid arthritis on immunosuppressant medications. 5. Chronic anemia. 6. History of chronic obstructive pulmonary disease without an acute exacerbation. 7. History of hypertension with a currently controlled blood pressure. 8. History of atrial fibrillation on chronic Eliquis therapy. PLAN: We will continue present supportive care. I will continue her on clear liquids at this time and we will obtain a complete abdominal ultrasound as she still remains quite tender in the abdomen, especially epigastric area. After the results of the sonogram, I will talk to Dr. Zapata, general surgeon, or GI if indicated. Will continue her present antibiotic therapy. Hopefully we can advance her diet tonight or tomorrow. Will continue to monitor her closely and follow as needed. Dr. Wood is the collaborating physician available for consultation. #[id number] [facility]
[2018-04-06] MEDS ORDERED: levoFLOXacin 500MG IV 100 ML IVPB ONE (18:07)
[2018-04-06] MEDS: levoFLOXacin 500MG IV 500 MG in PREMIX BAG 1 BAG IVPB SCH (18:10)
[2018-04-06] MEDS ORDERED: PROMETHAZINE HCL INJ 25 MG in SODIUM CHLORIDE 0.9% 50ML 50 ML IVPB ONE (21:18)
[2018-04-06] MEDS ORDERED: SODIUM CHLORIDE 0.9% 50ML 50 ML ONE (21:20)
[2018-04-06] MEDS ORDERED: PROMETHAZINE HCL INJ 25 MG/ML VIAL ONE (21:20)
[2018-04-07] MEDS: TEMAZEPAM 15 MG CAP PO SCH (02:04)
[2018-04-07] MEDS: metroNIDAZOLE IV PREMIX 500MG 500 MG in PREMIX BAG 1 BAG IVPB SCH ×3 (02:32→19:03)
--- NOTE | 2018-04-07 07:50 | RAD ---
EXAM DESCRIPTION: Abdomen Flat Upright CLINICAL HISTORY: colitis COMPARISON: None TECHNIQUE: AP radiographs of the abdomen supine upright. Inferior lungs.. FINDINGS: No free air under the diaphragms. Lung bases are clear. Gas throughout the small bowel but no distention. Diffuse gas in the colon with minimal gas mostly fluid descending colon and rectosigmoid. Surgical clips right upper quadrant. Fusion construct L5-S1 including central screw fusion. IMPRESSION: Probable bowel stasis. Small bowel obstruction unlikely. Possible diarrhea distal colon. No free air. Electronically signed by: Zach Franco MD 04/07/2018 7:49 AM CDT
[2018-04-07] MEDS: FLUTICASONE/SALMETEROL 250/50 14 PUFF/17 GM INH INH SCH ×2 (08:03→20:42)
[2018-04-07] MEDS: TIOTROPIUM INHALER INH SCH (08:03)
[2018-04-07] MEDS ORDERED: metroNIDAZOLE IV PREMIX 500MG 100 ML IVPB ONE ×3 (09:00→20:00)
[2018-04-07] MEDS ORDERED: TEMAZEPAM 15 MG CAP PO PRN (10:00)
[2018-04-07] MEDS: APIXABAN 2.5 MG TAB PO SCH ×2 (10:03→20:35)
[2018-04-07] MEDS: PANTOPRAZOLE SODIUM TAB 40 MG PO SCH (10:03)
[2018-04-07] MEDS: FOLIC ACID 1 MG TAB PO SCH ×2 (10:03→20:36)
[2018-04-07] MEDS: MONTELUKAST 10 MG TAB PO SCH (10:03)
[2018-04-07] MEDS: SPIRONOLACTONE 25 MG TAB PO SCH (10:04)
[2018-04-07] MEDS: NON-FORMULARY MEDICATION 1 EA MIS (Mirabegron [Myrbetriq] 25 MG) PO SCH (10:06)
[2018-04-07] MEDS: NEBIVOLOL 2.5 MG TAB PO SCH (10:14)
[2018-04-07] MEDS: CHOLECALCIFEROL 2,000 IU TAB PO SCH (10:16)
[2018-04-07] MEDS ORDERED: BISACODYL SUPPOSITORY 10 MG PR ONE (10:29)
[2018-04-07] MEDS: METOCLOPRAMIDE HCL INJ 10 MG/2 ML VIAL IV SCH ×3 (10:30→22:32)
--- NOTE | 2018-04-07 11:51 | PN ---
SUPERVISING PHYSICIAN: Guero Wood M.D. DATE: 04/07/18 SUBJECTIVE: The patient is lying in bed. She is asleep and awakens easily. She continues complaints of nausea as well as some right lower quadrant abdominal pain. She has had several bouts of diarrhea, but that has improved. She actually had some vomiting with her nausea overnight and required some Phenergan in addition to her Zofran. We discussed her plan of care. OBJECTIVE: VITAL SIGNS: Afebrile. Heart rate 83. Blood pressure 132/80. Respiratory rate 18. O2 saturation 95% on room air. RESPIRATORY: Essentially clear to auscultation bilaterally. CARDIAC: Regular rate and rhythm. GASTROINTESTINAL: Abdomen is soft. It is slightly diffusely tender, but mostly on the right lower quadrant. There is no rebound tenderness or guarding. Bowel sounds are slightly hypoactive. NEUROLOGIC: She is awake, alert and oriented times three. LABORATORY: CBC is basically unchanged with a normal white count of 7.8. Chemistries show a chloride of 114, bilirubin 0.6, serum total protein 6.2. Her stool for Giardia is negative. The remainder of her stool studies are pending. Preliminary blood cultures show no growth after 48 hours. Her abdominal x-ray shows probable bowel stasis, small bowel obstruction unlikely, possibly diarrhea in the distal colon, no free air. Her abdominal ultrasound from yesterday shows normal ultrasound of the gallbladder, but difficult to visualize. The common bile duct is dilated and intraluminal stones or sludge cannot be excluded. Consider radionucleotide hepatobiliary imaging. Liver small with scalloped edges, but normal echogenicity, question if there is a history of cirrhosis or other chronic liver issues with a normal portal vein size and flow. Normal ultrasound of the pancreas. Normal ultrasound of the left kidney and spleen, prior right nephrectomy. All other labs and films have been reviewed via the EMR. ASSESSMENT: 1. Right sided mid descending colitis. 2. Diarrhea. 3. Nausea that continues, may be due to colonic stasis. 4. Dehydration. 5. History of rheumatoid arthritis on immunosuppressant medications. 6. Chronic anemia. 7. History of chronic obstructive pulmonary disease without exacerbation. 8. History of hypertension. 9. History of atrial fibrillation on chronic Eliquis therapy. PLAN: We will continue present supportive care. I discussed her case with Dr. Zapata and he may see her later in consult. After reviewing the records as well as her films, he recommended a Dulcolax suppository as well as Reglan, which I have ordered both. I have also ordered a physical therapy evaluation for safety as well as frequent ambulation as that may help the stasis of her colon by ambulating frequently. 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 Some of her symptoms may be due to those medications. Otherwise, I have ordered some lab for in the morning and another abdominal x-ray. Will continue to monitor her closely and follow as needed. Dr. Wood is the collaborating physician available for consultation. [facility][id number] [facility]
[2018-04-07] MEDS ORDERED: levoFLOXacin 500MG IV 100 ML IVPB ONE (17:24)
[2018-04-07] MEDS: levoFLOXacin 500MG IV 500 MG in PREMIX BAG 1 BAG IVPB SCH (17:32)
[2018-04-07] MEDS: IV SET AND CAP CHANGE INJ INJ SCH (19:05)
[2018-04-07] MEDS: ACETAMINOPHEN 500 MG TAB PO PRN (20:42)
[2018-04-07] MEDS: KCL 20MEQ/0.45% NS 1,000 ML IVS PRN (20:47)
[2018-04-08] MEDS: TEMAZEPAM 15 MG CAP PO PRN (00:28)
[2018-04-08] MEDS: metroNIDAZOLE IV PREMIX 500MG 500 MG in PREMIX BAG 1 BAG IVPB SCH ×3 (02:59→19:06)
[2018-04-08] MEDS: METOCLOPRAMIDE HCL INJ 10 MG/2 ML VIAL IV SCH ×3 (04:33→17:21)
--- NOTE | 2018-04-08 07:44 | RAD ---
EXAM DESCRIPTION: Abdomen Flat Upright CLINICAL HISTORY: abd pain COMPARISON: April 07, 2018 FINDINGS: AP supine and upright views of the abdomen show a nonspecific, nonobstructive bowel gas pattern with no evidence for free intraperitoneal air. Multiple surgical clips throughout the right midabdomen are seen. No air-filled dilated loops of small bowel are seen. No significant air-fluid levels are identified. Less air-filled loops of bowel are seen on today's exam. No obvious organomegaly is seen. No abnormal calcifications are seen in the expected location of the renal collecting systems. Visualized lung bases show indistinctness of the right hemidiaphragm that could represent scarring or atelectasis unchanged from previous. Postsurgical changes to the lower lumbar spine and degenerative changes of the spine are seen. IMPRESSION: Nonspecific abdominal series. There are less air-filled dilated loops of bowel compared to previous exam. Electronically signed by: Amado Padilla MD 04/08/2018 7:42 AM CDT
[2018-04-08] MEDS: TIOTROPIUM INHALER INH SCH (08:07)
[2018-04-08] MEDS: FLUTICASONE/SALMETEROL 250/50 14 PUFF/17 GM INH INH SCH ×2 (08:07→20:48)
[2018-04-08] MEDS ORDERED: metroNIDAZOLE IV PREMIX 500MG 0 ML IVPB ONE (08:46)
[2018-04-08] MEDS: CHOLECALCIFEROL 2,000 IU TAB PO SCH (09:50)
[2018-04-08] MEDS: APIXABAN 2.5 MG TAB PO SCH ×2 (09:50→21:04)
[2018-04-08] MEDS: MONTELUKAST 10 MG TAB PO SCH (09:50)
[2018-04-08] MEDS: FOLIC ACID 1 MG TAB PO SCH ×2 (09:50→21:04)
[2018-04-08] MEDS: PANTOPRAZOLE SODIUM TAB 40 MG PO SCH (09:50)
[2018-04-08] MEDS: NON-FORMULARY MEDICATION 1 EA MIS (Mirabegron [Myrbetriq] 25 MG) PO SCH (09:51)
[2018-04-08] MEDS: NEBIVOLOL 2.5 MG TAB PO SCH (09:53)
[2018-04-08] MEDS: SPIRONOLACTONE 25 MG TAB PO SCH (09:53)
[2018-04-08] MEDS: ACETAMINOPHEN 500 MG TAB PO PRN ×2 (09:54→21:06)
[2018-04-08] MEDS ORDERED: BISACODYL SUPPOSITORY 10 MG PR ONE (11:18)
[2018-04-08] MEDS ORDERED: SODIUM CHLORIDE 0.9% (FLUSH) 10 ML SYG IV SCH (11:30)
--- NOTE | 2018-04-08 11:37 | PN ---
SUPERVISING PHYSICIAN: Guero Wood M.D. DATE: 04/08/18 SUBJECTIVE: The patient is sitting up in bed. She is watching television. She feels much better than she had previously. She has no nausea, vomiting or diarrhea. She had a good bowel movement yesterday and has had only 2 looser stools within the last 24 hours. She denies chest pain, nausea, vomiting or abdominal pain. OBJECTIVE: VITAL SIGNS: Afebrile. Heart rate 87. Blood pressure 133/69. Respiratory rate 18. O2 saturation 96% on room air. RESPIRATORY: Essentially clear to auscultation bilaterally. CARDIAC: Regular rate and rhythm. GASTROINTESTINAL: Abdomen is soft, nondistended, nontender. Bowel sounds are positive. EXTREMITIES: No cyanosis, clubbing or edema. NEUROLOGIC: She is awake, alert and oriented times three. LABORATORY: Electrolytes are basically within normal limits. Stool studies are still pending. Preliminary blood cultures show no growth after 3 days. Stool culture pending. Abdominal x-ray shows nonspecific abdominal series. There are less air-filled dilated loops of bowel compared to previous exam. On evaluation of the abdominal x-ray, there is less stool in the ascending right portion of the colon. There is a small amount of stool in the left descending colon. All other labs and films have been reviewed via the EMR. ASSESSMENT: 1. Right sided mid descending colitis. 2. Diarrhea. 3. Nausea, mostly resolved, may have been due to colonic stasis. 4. Dehydration. 5. History of rheumatoid arthritis on immunosuppressant medications. 6. Chronic anemia. 7. History of chronic obstructive pulmonary disease without exacerbation. 8. History of hypertension. 9. History of atrial fibrillation on chronic Eliquis therapy. PLAN: We will continue present supportive care including her antibiotics. We will continue to monitor her cultures and stool studies as they become available. I have advanced her diet to a bland diet and saline locked her IV. I am going to give her one additional Dulcolax suppository tonight. We will continue on her Reglan. Her last GI appointment was with Dr. Mendoza about a year and he said she did not need a colonoscopy until she was 76, but on hospital followup, Dr. Alonso, her primary care physician, may want to have her followup with a GI doctor. I think it would be beneficial to leave her on Reglan for at discharge and DR. Alonso can evaluate if she needs to continue on that. Otherwise, we will continue to monitor her closely and follow as needed. Dr. Wood is the collaborating physician available for consultation. #[id number] [facility]
[2018-04-08] MEDS ORDERED: BISACODYL SUPPOSITORY 10 MG PR SCH (11:45)
[2018-04-08] MEDS ORDERED: metroNIDAZOLE IV PREMIX 500MG 100 ML IVPB ONE (17:57)
[2018-04-08] MEDS ORDERED: levoFLOXacin 500MG IV 100 ML IVPB ONE (17:58)
[2018-04-08] MEDS: levoFLOXacin 500MG IV 500 MG in PREMIX BAG 1 BAG IVPB SCH (18:03)
[2018-04-08] MEDS ORDERED: ONDANSETRON ODT 8 MG TAB SL PRN (19:19)
[2018-04-08] MEDS: METOCLOPRAMIDE HCL 5 MG TAB PO SCH (21:05)
[2018-04-08] MEDS: metroNIDAZOLE 500 MG TAB PO SCH (21:33)
[2018-04-09] MEDS: TEMAZEPAM 15 MG CAP PO PRN (00:17)
[2018-04-09 02:06] VITALS: TEMP 98.2
[2018-04-09 05:53] VITALS: O2SAT 95
[2018-04-09] MEDS: metroNIDAZOLE 500 MG TAB PO SCH (06:10)
[2018-04-09] MEDS: METOCLOPRAMIDE HCL 5 MG TAB PO SCH (06:30)
[2018-04-09] MEDS: TIOTROPIUM INHALER INH SCH (09:00)
[2018-04-09] MEDS ORDERED: levoFLOXacin 500 MG TAB PO SCH (09:00)
[2018-04-09] MEDS: FLUTICASONE/SALMETEROL 250/50 14 PUFF/17 GM INH INH SCH (09:00)
[2018-04-09] MEDS: NEBIVOLOL 2.5 MG TAB PO SCH (09:42)
[2018-04-09] MEDS: MONTELUKAST 10 MG TAB PO SCH (09:42)
[2018-04-09] MEDS: APIXABAN 2.5 MG TAB PO SCH (09:42)
[2018-04-09] MEDS: SPIRONOLACTONE 25 MG TAB PO SCH (09:42)
[2018-04-09] MEDS: CHOLECALCIFEROL 2,000 IU TAB PO SCH (09:43)
[2018-04-09] MEDS: FOLIC ACID 1 MG TAB PO SCH (09:43)
[2018-04-09] MEDS: NON-FORMULARY MEDICATION 1 EA MIS (Mirabegron [Myrbetriq] 25 MG) PO SCH (09:43)
[2018-04-09] MEDS: PANTOPRAZOLE SODIUM TAB 40 MG PO SCH (10:00)
[2018-04-09 13:20] VITALS: BP 143/77
--- NOTE | 2018-04-10 21:28 | DS ---
SUPERVISING PHYSICIAN: Guero Wood M.D. ADMISSION DIAGNOSIS: 1. Right mid descending colitis. 2. Dehydration secondary to diarrhea. 3. History of rheumatoid arthritis on immunosuppressant medications. 4. Chronic anemia, normocytic/normochromic, of chronic illness. 5. History of chronic obstructive pulmonary disease without any acute exacerbation. 6. History of hypertension currently controlled with blood pressure medications. 7. History of atrial fibrillation with controlled ventricular rate on chronic Eliquis therapy. DISCHARGE DIAGNOSIS: 1. Right mid descending colitis improving with parenteral antibiotics. 2. History of rheumatoid arthritis on immunosuppressant medications. 3. Normocytic/normochromic chronic anemia due to chronic illness. 4. History of chronic obstructive pulmonary disease without any acute exacerbation. 5. History of hypertension with controlled blood pressures on medication. 6. History of atrial fibrillation on chronic Eliquis therapy as well as controlled ventricular rate. REASON FOR HOSPITALIZATION: Ms. Donaldson is a 72 year-old female with an extensive past medical history who presented to the hospital on 04/04/18 with diarrhea basically since 03/25/18. She had noted that she had had some nausea and vomiting along the way but had stopped a couple of days previous to admission. She continued to have diarrhea and presented to the Emergency Room for evaluation. In the Emergency Room, it was noted that CT scan was completed revealing mid descending colon colitis but no surgical indication at that time was noted. The patient also has a history of rheumatoid arthritis and is on Arava, but no longer taking steroids. She had a low-grade fever on 99.7 and was then admitted to the Medical/Surgical floor for further treatment and evaluation of descending colon colitis. LABORATORY: CBC on admission was 7,800, at discharge was 7,800. Hemoglobin and hematocrit were stable, at discharge was 10.7 and 33.2 respectively with RBC indices indicating a normocytic/normochromic presentation with platelet count at 219,000 at discharge. Differential showed a left shift. It resolved prior to discharge. Chemistries showed normal electrolytes. She did have 1 low potassium on the 18th at 3.5, this normalized at discharge. Electrolytes were normal. Potassium 4.1, BUN less than 5, creatinine 0.97, calciums were stable at 10.0 at discharge. Magnesium 1.9. Liver functions initially did show a slight elevation of bilirubin at 1.3 but this normalized to 0.6 prior to discharge. All other liver functions were within normal limits. Lipase was normal at 15. Urinalysis just showed 15 ketones, small amount of bilirubin, otherwise within normal limits. Microscopic showed 10 to 20 epithelials, only 1 to 3 WBCs. She had 1 occult blood that was positive. She had a cryptosporidium antigen that was negative. Giardia antigen that was negative. Trichrome parasite stain was pending. MICROBIOLOGY: Blood cultures remain negative after 5 days. Stool cultures showed normal enteric braulio recovered. No Salmonella, shigella, Campylobacter Aeromonas or Plesiomonas cultured. Stool leukocytes times 1 sample did show positive for fecal lactoferrin indicative of fecal leukocytes. She had a Clostridium Difficile toxin A and B that was negative. RADIOLOGY: Initially in the Emergency Department she had an abdominal/pelvic CT without contrast and per radiology interpretation showed colitis in the mid descending colon with suspected cirrhosis, atherosclerosis and suspected emphysema, prior right nephrectomy with suspected tiny gallstones. Right upper quadrant sonogram would be suggested which did show per radiology interpretation normal ultrasound of the gallbladder. Common bile duct was dilated. Intraluminal stones or sludge cannot be excluded due to left lateral decubitus position and difficult visualization. Recommended radionuclide hepatobiliary imaging. The liver was small with scalloped edges, but normal echogenicity. Normal ultrasound of the pancreas. Normal ultrasound of the left kidney. Right prior nephrectomy. Normal caliber of the proximal mid abdominal aorta. She had multiple abdominal x-rays and on 04/08/18 final abdominal x-ray showed per radiology interpretation nonspecific abdominal series. There are less air-filled dilated loops of bowel compared to previous exam. HOSPITAL COURSE: Ms. Donaldson was admitted for acute colitis as noted above. She was started on Levaquin, Flagyl and bowel rest, and given fluids. She did show good clinical improvement and was able to advance diet to a regular diet which she was tolerating on the day of discharge. The patient is continuing to have some persistent nausea and required initiation of Reglan which did work to stop her nausea and will be continued at discharge. She was clinically improved with no nausea or vomiting, diarrhea was minimal with no abdominal pains. It was felt that she had clinically improved well enough to continue with outpatient management to followup with gastroenterology. PLAN: Ms. Donaldson is discharged on 04/09/18 with instructions to have close clinical followup with Dr. Alonso and to call his office on Wednesday. She was to resume her home medications as instructed and take new medications as prescribed. She was encouraged fluids to prevent dehydration. Recommendations for further workup within GI as well as possible radionuclide studies of the gallbladder to further delineate the findings on ultrasound were recommended. She was continued on p.o. antibiotics and told to return to the hospital should she have any concerning symptoms. Diet at discharge was to resume usual diet. Activity is increase as tolerated. Prescriptions at discharge included: 1. Zofran 4 mg every 6 hours as needed, #12. No refills. 2. Levaquin 500 mg every 24 hours, #7. No refills. 3. Reglan 5 mg orally before meals and at bedtime, #60. No refills. 4. Flagyl 500 mg every 8 hours, #28. No refills. All other medications continued as previous to hospitalization. Recommendations again were to have GI followup with her previous GI specialist as noted. Dr. Mendoza, who did a colonoscopy about a year previously, noted that no abnormal findings. Recommended she have a followup at 76 years of age. Again, Reglan was the new medication which needs to be addressed during followup for indications for continuation if needed. #[id number] [facility]
== END 2018-04-09 11:50 | disposition home or self-care (01) | DRG 392 ==
LOC: ER 13:10 → MS 17:44
PROVIDERS: ADMIT Nurse Practitioner; ATTEND Nurse Practitioner Family
DX: K52.9 Noninfective gastroenteritis and colitis, unspecified (principal); G61.81 Chronic inflammatory demyelinating polyneuritis; E86.0 Dehydration; K59.8 Other specified functional intestinal disorders; M06.9 Rheumatoid arthritis, unspecified; D63.8 Anemia in other chronic diseases classified elsewhere; J44.9 Chronic obstructive pulmonary disease, unspecified; I11.0 Hypertensive heart disease with heart failure; I48.91 Unspecified atrial fibrillation; R19.5 Other fecal abnormalities; I50.9 Heart failure, unspecified; E78.5 Hyperlipidemia, unspecified; M54.12 Radiculopathy, cervical region; M54.16 Radiculopathy, lumbar region; E66.9 Obesity, unspecified; Z90.5 Acquired absence of kidney; Z98.1 Arthrodesis status; Z79.51 Long term (current) use of inhaled steroids; Z88.1 Allergy status to other antibiotic agents; Z88.0 Allergy status to penicillin; Z88.6 Allergy status to analgesic agent; Z88.2 Allergy status to sulfonamides; Z88.5 Allergy status to narcotic agent; Z88.8 Allergy status to other drugs, medicaments and biological substances; Z87.891 Personal history of nicotine dependence; Z79.02 Long term (current) use of antithrombotics/antiplatelets; Z79.899 Other long term (current) drug therapy; Z68.37 Body mass index [BMI] 37.0-37.9, adult

== ENCOUNTER → 2018-04-11 | Outpatient (CLI) | payer MEDICARE, MEDICAID | LOC: GMAM 14:14 | PROVIDERS: ATTEND Family Medicine | DX: A09 Infectious gastroenteritis and colitis, unspecified (principal) ==

== ENCOUNTER → 2018-04-13 | Outpatient (CLI) | payer MEDICARE, MEDICAID | LOC: GMAM 15:51 | PROVIDERS: ATTEND Family Medicine | DX: E83.50 Unspecified disorder of calcium metabolism (principal) ==

== ENCOUNTER → 2018-04-14 | Outpatient (CLI) | payer MEDICARE, MEDICAID ==
--- NOTE | 2018-04-14 16:28 | NM ---
EXAM DESCRIPTION: Hepatobiliar w/CCK CLINICAL HISTORY: Abdominal pain, infectious colitis, enteritis, gastroenteritis COMPARISON: Ultrasound abdomen complete dated April 06, 2018 TECHNIQUE: Routine hepatobiliary scan was performed following intravenous administration of 7.6 mCi technetium 99m mebrofenin. Oral ingestion of 8 ounces of Ensure Plus fatty meal was utilized to stimulate gallbladder contraction. FINDINGS: Hepatobiliary scan shows prompt accumulation of the radiopharmaceutical within the liver and excretion into the biliary ductal system, gallbladder, and small bowel. Gallbladder ejection fraction is assessed following oral ingestion of fatty meal. Patient reports abdominal pain and burning following oral ingestion of fatty meal. Gallbladder ejection fraction is calculated at 31%. IMPRESSION: 1. Visualization of the gallbladder essentially excludes acute cholecystitis. 2. Decreased gallbladder ejection fraction at 31% (normal range is greater than 35%). In the appropriate clinical settings, this would be compatible with gallbladder dysfunction. 3. Patient reports abdominal pain and burning during gallbladder stimulation with fatty meal. Electronically signed by: Rahseed Birmingham MD 04/14/2018 4:27 PM CDT
== END ==
LOC: NM 08:59
PROVIDERS: ATTEND Family Medicine
DX: A09 Infectious gastroenteritis and colitis, unspecified (principal)
CPT/HCPCS: 78227; A9537

== ENCOUNTER → 2018-04-18 | Outpatient (CLI) | payer MEDICARE, MEDICAID | LOC: GMAM 17:31 | PROVIDERS: ATTEND Family Medicine | DX: R10.13 Epigastric pain (principal) ==

== ENCOUNTER → 2018-04-20 | Outpatient (CLI) | payer MEDICARE, MEDICAID ==
--- NOTE | 2018-04-20 14:48 | MRI ---
EXAM DESCRIPTION: Brain w/oContrast CLINICAL HISTORY: 72 years Female, visual disturbances and possible TIA COMPARISON: None available. TECHNIQUE: Multiplanar multiecho imaging of the brain was performed without the administration of intravenous contrast. FINDINGS:Minimal periventricular white matter ischemia. No acute major vascular territorial infarct or acute intraparenchymal hemorrhage. No intra-axial or extra-axial fluid collections are identified. The cisterns and ventricles appear normal in caliber. The sella and suprasellar regions demonstrate no gross abnormality. The structures of the posterior fossa are intact. The visualized paranasal sinuses and mastoid air cells appear normal. The globes are intact bilaterally. Review of the bones demonstrates no gross abnormality. IMPRESSION: Minimal periventricular white matter ischemia. No acute intracranial process. Electronically signed by: Joel Jackson MD 04/20/2018 2:47 PM CDT
== END ==
LOC: MRI 11:00
PROVIDERS: ATTEND Family Medicine
DX: H53.8 Other visual disturbances (principal)

== ENCOUNTER → 2018-05-30 | Outpatient (CLI) | payer MEDICARE, MEDICAID | LOC: GMAM 16:53 | PROVIDERS: ATTEND Family Medicine | DX: R19.7 Diarrhea, unspecified (principal) ==

== ENCOUNTER → 2018-07-05 | Outpatient (CLI) | payer MEDICARE, MEDICAID | LOC: GMAM 11:10 | PROVIDERS: ATTEND Family Medicine | DX: R19.7 Diarrhea, unspecified (principal) ==

== ENCOUNTER → 2018-07-06 | Outpatient (CLI) | payer MEDICARE, MEDICAID | LOC: LAB.O 11:08 | PROVIDERS: ATTEND Family Medicine | DX: R19.7 Diarrhea, unspecified (principal) ==

== ENCOUNTER → 2018-07-08 | Outpatient (CLI) | payer MEDICARE, MEDICAID | LOC: GMAM 18:53 | PROVIDERS: ATTEND Family Medicine | DX: R19.7 Diarrhea, unspecified (principal) ==

== ENCOUNTER → 2018-07-26 | Outpatient (CLI) | payer MEDICARE, MEDICAID | LOC: GMAM 10:30 | PROVIDERS: ATTEND Family Medicine | DX: E21.3 Hyperparathyroidism, unspecified (principal); I10 Essential (primary) hypertension ==

== ENCOUNTER → 2018-08-03 | Outpatient (CLI) | payer MEDICARE, MEDICAID | LOC: LAB.O 10:07 | PROVIDERS: ATTEND Internal Medicine Endocrinology, Diabetes & Metabolism | DX: E55.9 Vitamin D deficiency, unspecified (principal); E83.52 Hypercalcemia; I10 Essential (primary) hypertension; M35.00 Sjogren syndrome, unspecified; M81.0 Age-related osteoporosis without current pathological fracture ==

== ENCOUNTER → 2018-08-05 | Outpatient (CLI) | payer MEDICARE, MEDICAID | LOC: LAB.O 09:56 | PROVIDERS: ATTEND Internal Medicine Endocrinology, Diabetes & Metabolism | DX: E55.9 Vitamin D deficiency, unspecified (principal); I10 Essential (primary) hypertension; M35.00 Sjogren syndrome, unspecified; M81.0 Age-related osteoporosis without current pathological fracture ==

== ENCOUNTER → 2018-09-06 | Outpatient (CLI) | payer MEDICARE, MEDICAID | LOC: NC 09:33 | PROVIDERS: ATTEND Family Medicine | DX: R30.0 Dysuria (principal) ==

== ENCOUNTER 2018-11-25 13:00 | Emergency (ER) | payer MEDICARE, MEDICAID ==
[2018-11-25] MEDS ORDERED: LIDOCAINE 1% 10 ML VIAL INJ ONE (13:22)
[2018-11-25 13:23] VITALS: TEMP 98.1; O2SAT 96
--- NOTE | 2018-11-25 13:45 | ED.PDOC ---
History of Present Illness - General Chief Complaint: Back Pain or Injury Stated Complaint: left posterior shoulder pain Time Seen by Provider: 11/25/18 13:32 Source: patient Exam Limitations: no limitations - History of Present Illness Initial Comments: patient comes in from the clinic for left scapular pain. Patient states started a week ago without injury or trauma. She has never had this before. She was seen in the clinic and given muscle relaxers. They did not help at all and today she returned to the clinic. The GRAINING PRESS OPERATOR who evaluated here "felt a ball" and sent her to the ER. Patient states pain is severe, does not radiate, and gets worse with deep inspiration. She has had no cough or congestion. She does have atrial fibrillation and is on blood thinners Eloquis. Timing/Duration: 1 week Quality/Severity: severe Back Pain Location: other - medial to left scapula Back Pain Radiation: other - none Method of Injury/Prior Injury: unknown Improving Factors: nothing Worsening Factors: movement Associated Symptoms: denies symptoms Allergies/Adverse Reactions: Allergies Atenolol Allergy (Verified 11/25/18 13:37) Calcium Chloride [From OptiMARK] Allergy (Verified 04/04/18 15:47) Calcium Versetamide Sodium [From OptiMARK] Allergy (Verified 04/04/18 15:47) Codeine Allergy (Verified 11/25/18 13:37) Gadoversetamide [From OptiMARK] Allergy (Verified 04/04/18 15:47) Gentamicin [From Gentamicin Sulfate IV] Allergy (Verified 06/05/17 13:24) Hives Leflunomide [From Arava] Allergy (Verified 11/25/18 13:37) Methotrexate Allergy (Verified 11/25/18 13:37) Penicillins Allergy (Verified 06/05/17 13:24) Other breaks out in blisters Sulfa Antibiotics Allergy (Verified 06/05/17 13:24) Vomitting Tofacitinib [From Xeljanz] Allergy (Verified 11/25/18 13:37) Zolpidem [From Ambien] Allergy (Verified 11/25/18 13:37) Meloxicam [From Mobic] Adverse Reaction (Severe, Verified 06/05/17 13:24) Hives Home Medications: Ambulatory Orders ALPRAZolam [Xanax] 1 mg PO DAILY PRN 06/05/14 Bupropion HCl [Wellbutrin Sr] 300 mg PO BID 06/05/14 Montelukast [Singulair] 10 mg PO DAILY 06/05/14 Tiotropium [place] Monohydrate [Spiriva Handihaler] 1 puff IN DAILY 06/05/14 Polyethylene Glycol 3350 [Miralax] 17 gm PO DAILY PRN 09/27/15 Folic Acid 1 mg PO BID 01/19/16 Pantoprazole Tablet [Protonix] 40 mg PO DAILY 03/26/16 Temazepam [Restoril] 30 mg PO PRN 03/26/16 Acetaminophen [Tylenol] 500 mg PO PRN PRN 04/13/16 Apixaban [Eliquis] 10 mg PO BID 04/13/16 Nebivolol HCl [Bystolic] 5 mg PO DAILY 04/13/16 Fluticasone/Salmeterol 250/50 [Advair 250/50 Diskus] 1 puff INH BID 05/06/16 Albuterol Sulfate [Ventolin Hfa] 90 mcg INH PRN 04/04/18 Cholecalciferol [D3 2000] 2,000 unit PO DAILY 04/04/18 Denosumab [Prolia] 60 mg SC MONTHLY 04/04/18 Hydroxychloroquine Sulfate [Hydroxychloroquine Sulfat] 200 mg PO BID 04/04/18 Linzess 290 mcg PO DAILY PRN 04/04/18 Mirabegron [Myrbetriq] 25 mg PO DAILY 04/04/18 Spironolactone 50 mg PO DAILY 04/04/18 Metoclopramide Tab [Reglan Tab] 5 mg PO ACHS #60 tab 04/09/18 Ondansetron HCl [Zofran] 4 mg PO Q6HR PRN #12 tab 04/09/18 levoFLOXacin [Levaquin] 500 mg PO Q24H #7 tab 04/09/18 metroNIDAZOLE [Flagyl] 500 mg PO Q8H #28 tab 04/09/18 Cyclobenzaprine HCl [Flexeril] 5 mg PO TID PRN #20 tab 11/25/18 Review of Systems - Review of Systems Constitutional: States: no symptoms reported. Denies: chills, fever EENTM: States: no symptoms reported Respiratory: States: no symptoms reported. Denies: cough, short of breath, wheezing Cardiology: States: no symptoms reported. Denies: chest pain, palpitations Gastrointestinal/Abdominal: States: no symptoms reported. 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 Hx Cancer: No Hx of HIV: No Hx Hepatitis C: No Hx MRSA: No Surgical History: Hysterectomy - Vaccination History Hx Tetanus, Diphtheria Vaccination: Yes Hx Influenza Vaccination: Yes Hx Pneumococcal Vaccination: Yes - Social History Hx Tobacco Use: Yes Hx Chewing Tobacco Use: No Hx Alcohol Use: No Hx Substance Use: No Hx Substance Use Treatment: No Hx Depression: No Hx Physical Abuse: No Hx Emotional Abuse: No Hx Suspected Abuse: No - Female History Patient : No Family Medical History - Family History Father Family History: No Known Living Status: Age at (years of age): 85 Cause of : colon cancer Hx Family Cancer: Yes - colon Physical Exam - Physical Exam General Appearance: Alert, Anxious, No apparent distress Eyes, Ears, Nose, Throat Exam: PERRL/EOMI, normal ENT inspection Neck Exam: non-tender, full range of motion, normal alignment Cardiovascular/Respiratory: normal peripheral pulses, no JVD, normal breath sounds, no respiratory distress, irregularly irregular Gastrointestinal/Abdominal: normal bowel sounds, non tender, soft Back Exam: other - TTP with trgger point to the medial side of scapula. 1 cc of 1% lidocaine injected with 27 gauge needle to the area with no change in pain. Swelling vs small cystic mass felt in the subcutaneous tissue Neurologic: alert, oriented x 3 Progress - Progress Progress: 11/25/18 14:35 spoke to patient and she states in the past with other muscle pain flexeril has helped and not the robaxin that she was given this time. Precautions discussed but will try flexeril and cold therapy - Results/Orders Results/Orders: Patient Name: COLETTE COLUNGA Gender: Female Date of : 1945 Referring Physician: JESUS ALBERTO STEEN Organization: [facility] Accession Number: [id number] Requested Date: November 25, 2018 13:32 Report Status: Final Requested Procedure: 1 Procedure Description: Chest w/o Contrast Modality: CT Findings Reporting MD: Rudolph Donohue MD: Not available Dictation Time: Toe Lining Closer: Not available Examining Officer Date: EXAM DESCRIPTION: Chest w/o Contrast CLINICAL HISTORY: pain L scapula area with ?cyst/mass in soft tissue COMPARISON: CT abdomen pelvis April 04, 2018. TECHNIQUE: Non contrast multidetector CT imaging of the chest. Multiplanar reconstructions were provided. This exam was performed according to our departmental dose-optimization program which includes automated exposure control, adjustment of the mA and/or kV according to patient size and/or use of iterative reconstruction technique. FINDINGS: Lower neck soft tissues are unremarkable. No axillary lymphadenopathy is present. Trachea and proximal bronchi are patent. No endobronchial lesions are present. The lungs are unremarkable. No pleural thickening or pleural nodularity. The heart is normal in size. Visualization of the interventricular septum indicating anemia. Usual atherosclerotic changes at the great vessels. No aggressive lytic or blastic osseous lesions are demonstrated. Specifically, the left scapula is normal in appearance. There is no scapular mass or adjacent soft tissue lesion. Old anterior wedge compression fracture deformity of the T6 vertebral body indicating osteoporosis. No acute fractures are present. Visualized structures of the upper abdomen are stable in appearance. IMPRESSION: [facility] [employer] [address] [place] [address], [address] [place], [place] T [phone] [email or web address] - Report exported on Nov 25, 2018 14:33:28 -0600 - Page [address] findings explain the patient's left scapular pain. Anemia. Osteoporosis Departure - Departure Clinical Impression: Muscle spasm Disposition: Discharge to Home or Self Care Departure Forms: ED Discharge - Pt. Copy, Patient Portal Self Enrollment Instructions: DI for Low Back Pain Referrals: Deshawn Alonso MD [Primary Care Provider] - 1-2 Weeks Prescriptions: Cyclobenzaprine HCl [Flexeril] 5 mg PO TID PRN #20 tab PRN Reason: Pain Home Medications: Ambulatory Orders ALPRAZolam [Xanax] 1 mg PO DAILY PRN 06/05/14 Bupropion HCl [Wellbutrin Sr] 300 mg PO BID 06/05/14 Montelukast [Singulair] 10 mg PO DAILY 06/05/14 Tiotropium [place] Monohydrate [Spiriva Handihaler] 1 puff IN DAILY 06/05/14 Polyethylene Glycol 3350 [Miralax] 17 gm PO DAILY PRN 09/27/15 Folic Acid 1 mg PO BID 01/19/16 Pantoprazole Tablet [Protonix] 40 mg PO DAILY 03/26/16 Temazepam [Restoril] 30 mg PO PRN 03/26/16 Acetaminophen [Tylenol] 500 mg PO PRN PRN 04/13/16 Apixaban [Eliquis] 10 mg PO BID 04/13/16 Nebivolol HCl [Bystolic] 5 mg PO DAILY 04/13/16 Fluticasone/Salmeterol 250/50 [Advair 250/50 Diskus] 1 puff INH BID 05/06/16 Albuterol Sulfate [Ventolin Hfa] 90 mcg INH PRN 04/04/18 Cholecalciferol [D3 2000] 2,000 unit PO DAILY 04/04/18 Denosumab [Prolia] 60 mg SC MONTHLY 04/04/18 Hydroxychloroquine Sulfate [Hydroxychloroquine Sulfat] 200 mg PO BID 04/04/18 Linzess 290 mcg PO DAILY PRN 04/04/18 Mirabegron [Myrbetriq] 25 mg PO DAILY 04/04/18 Spironolactone 50 mg PO DAILY 04/04/18 Metoclopramide Tab [Reglan Tab] 5 mg PO ACHS #60 tab 04/09/18 Ondansetron HCl [Zofran] 4 mg PO Q6HR PRN #12 tab 04/09/18 levoFLOXacin [Levaquin] 500 mg PO Q24H #7 tab 04/09/18 metroNIDAZOLE [Flagyl] 500 mg PO Q8H #28 tab 04/09/18 Cyclobenzaprine HCl [Flexeril] 5 mg PO TID PRN #20 tab 11/25/18
--- NOTE | 2018-11-25 14:15 | CT ---
EXAM DESCRIPTION: Chest w/o Contrast CLINICAL HISTORY: pain L scapula area with ?cyst/mass in soft tissue COMPARISON: CT abdomen pelvis April 04, 2018. TECHNIQUE: Non contrast multidetector CT imaging of the chest. Multiplanar reconstructions were provided. This exam was performed according to our departmental dose-optimization program which includes automated exposure control, adjustment of the mA and/or kV according to patient size and/or use of iterative reconstruction technique. FINDINGS: Lower neck soft tissues are unremarkable. No axillary lymphadenopathy is present. Trachea and proximal bronchi are patent. No endobronchial lesions are present. The lungs are unremarkable. No pleural thickening or pleural nodularity. The heart is normal in size. Visualization of the interventricular septum indicating anemia. Usual atherosclerotic changes at the great vessels. No aggressive lytic or blastic osseous lesions are demonstrated. Specifically, the left scapula is normal in appearance. There is no scapular mass or adjacent soft tissue lesion. Old anterior wedge compression fracture deformity of the T6 vertebral body indicating osteoporosis. No acute fractures are present. Visualized structures of the upper abdomen are stable in appearance. IMPRESSION: No CT findings explain the patient's left scapular pain. Anemia. Osteoporosis. Electronically signed by: Rudolph Donohue MD 11/25/2018 2:11 PM [employer] BUSINESS PARTNER CONSULTANT
[2018-11-25 14:47] VITALS: BP 187/73
== END 2018-11-25 14:47 | disposition home or self-care (01) ==
LOC: ER 13:00
DX: M62.838 Other muscle spasm (principal); J44.9 Chronic obstructive pulmonary disease, unspecified; I48.91 Unspecified atrial fibrillation; I50.9 Heart failure, unspecified; I11.0 Hypertensive heart disease with heart failure; Z79.899 Other long term (current) drug therapy; Z87.891 Personal history of nicotine dependence; Z90.5 Acquired absence of kidney; Z88.0 Allergy status to penicillin; Z88.2 Allergy status to sulfonamides; Z88.8 Allergy status to other drugs, medicaments and biological substances; Z88.5 Allergy status to narcotic agent

== ENCOUNTER → 2019-01-23 | Outpatient (CLI) | payer MEDICARE, MEDICAID | LOC: GMAM 14:32 | PROVIDERS: ATTEND Family Medicine | DX: E21.3 Hyperparathyroidism, unspecified (principal); I10 Essential (primary) hypertension; R53.83 Other fatigue; E55.9 Vitamin D deficiency, unspecified ==

== ENCOUNTER → 2019-01-27 | Outpatient (CLI) | payer MEDICARE, MEDICAID ==
--- NOTE | 2019-02-01 16:49 | MAM ---
EXAM DESCRIPTION: 3D Screening BILATERAL : Digital Mammography. CLINICAL HISTORY: 73 years Female ANNUAL SCREENING . No complaints. No personal or family history of breast cancer. Childbirth. Hysterectomy 14 years ago. No HRT.. Lifetime risk of developing breast cancer (Tyrer-Cuzick model)(%): 3.6. COMPARISON: Bilateral screening digital breast tomosynthesis 01/19/2018. TECHNIQUE: Bilateral CC and MLO projection full-field images, digital tomosynthesis mammographic technique. Bilateral digital 2-D full-field MLO images. CAD not available for tomosynthesis or 2-D images. FINDINGS: The breast parenchymal density pattern is: Scattered areas of fibroglandular density. No skin thickening or nipple retraction. No new focal, stellate mass or density, focal asymmetry , and no suspicious microcalcifications bilaterally. Stable mammograms compared to prior study. IMPRESSION: BI-RADS CATEGORY: 1 - NEGATIVE FOLLOW UP: Routine digital bilateral screening, one year interval from January 2019. Written communication explaining the findings and follow-up, will be mailed to the patient and referring health care provider. According to the [employer], yearly mammograms are recommended starting at age 40 and continuing as long as a woman is in good health. Any breast change noted on a breast self-exam should be reported promptly to the patient's healthcare provider. Breast MRI is recommended for women with an approximately 20-25% or greater lifetime risk of breast cancer, including women with a strong family history of breast or ovarian cancer and women who have been treated for Hodgkin's disease. A negative mammographic report should not delay tissue diagnosis in patients with significant clinical history or physical findings. Extremely dense breast tissue limits the sensitivity of digital mammography. Electronically signed by: Zach Franco MD 02/01/2019 4:47 PM CDT
== END ==
LOC: MAMMO 09:00
DX: Z12.31 Encounter for screening mammogram for malignant neoplasm of breast (principal)

== ENCOUNTER → 2019-05-23 | Outpatient (CLI) | payer MEDICARE, MEDICAID | LOC: LAB.O 15:51 | PROVIDERS: ATTEND Internal Medicine Endocrinology, Diabetes & Metabolism | DX: E55.9 Vitamin D deficiency, unspecified (principal); E83.52 Hypercalcemia; M81.0 Age-related osteoporosis without current pathological fracture ==

== ENCOUNTER → 2019-06-05 | Outpatient (CLI) | payer MEDICARE, MEDICAID | LOC: GMAM 14:23 | PROVIDERS: ATTEND Family Medicine | DX: E21.3 Hyperparathyroidism, unspecified (principal); I10 Essential (primary) hypertension; E55.9 Vitamin D deficiency, unspecified ==

== ENCOUNTER → 2019-10-10 | Outpatient (CLI) | payer MEDICARE, MEDICAID ==
--- NOTE | 2019-10-11 07:40 | MRI ---
Study: MRI of the Right Hip. Indication: PAIN IN RIGHT HIP Technique: Multiplanar, multi sequence MRI of the right hip was obtained without intravenous contrast. Comparison: None. Findings: Grade 3-4 chondral loss throughout the right hip joint and most pronounced anterosuperiorly. Tiny joint line osteophytes. No acute fracture or osteonecrosis. Labral degeneration present. Tiny right hip effusion. Tendinosis bilateral gluteus minimus/medius tendon insertions with mild bilateral greater trochanter bursal edema. Tendinosis bilateral hamstring tendon origins. Severe pubic symphysis osteoarthritis. Pronounced susceptibility artifact at the right lumbosacral junction, likely postsurgical. Impression: Moderate right hip posterior dries with associated labral degeneration and a tiny joint effusion. No acute fracture or osteonecrosis. Additional findings as above. Electronically signed by: Ru De Jesus MD 10/11/2019 7:38 AM [facility]
== END ==
LOC: MRI 09:00
PROVIDERS: ATTEND Family Medicine
DX: M25.451 Effusion, right hip (principal); M16.11 Unilateral primary osteoarthritis, right hip

== ENCOUNTER → 2019-10-19 | Outpatient (CLI) | payer MEDICARE, MEDICAID ==
--- NOTE | 2019-10-20 06:49 | RAD ---
EXAM DESCRIPTION: Pelvis CLINICAL HISTORY: PAIN IN RIGHT HIP COMPARISON: None. IMPRESSION: Single AP supine view of the pelvis shows no acute fracture, focal bone destruction, or joint dislocation. The osseous structures are diffusely osteopenic. Mild joint space narrowing and sclerotic changes to the superior lateral acetabulum is seen in both hips compatible with moderate osteoarthritic changes. Postsurgical changes to the lower lumbar spine are incidentally noted. Evaluation for fracture is limited given the degree of osteopenia. If high clinical concern for acute fracture, correlation with MRI recommended given its greater sensitivity in the osteopenic patient. If the patient cannot tolerate MRI imaging or more urgent imaging is required, CT could be performed, however it is less sensitive in the osteopenic patient when compared to MRI. Electronically signed by: Amado Padilla MD 10/20/2019 6:47 AM [facility]
== END ==
LOC: RAD 10:50
PROVIDERS: ATTEND Orthopaedic Surgery
DX: M85.88 Other specified disorders of bone density and structure, other site (principal); M25.841 Other specified joint disorders, right hand; M25.842 Other specified joint disorders, left hand; Z98.890 Other specified postprocedural states

== ENCOUNTER → 2020-02-06 | Outpatient (CLI) | payer MEDICARE, MEDICAID ==
--- NOTE | 2020-02-07 09:03 | US ---
EXAM DESCRIPTION: Extremity,Lower [place] Arteries: Ultrasound. CLINICAL HISTORY: PVD COMPARISON: None. TECHNIQUE: Doppler evaluation of the bilateral lower extremity arterial flow waveforms and velocities. FINDINGS: Arterial waveforms in the left lower extremity are multiphasic from the common femoral artery through the left posterior tibial artery. Left DPA is monophasic.. . Comments: Significant velocity increase in the left dorsalis pedis artery. Minimal velocity decrease in the left popliteal artery. 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 Consider CTA evaluation if these findings are discordant from clinical findings. Electronically signed by: Zach Franco MD 02/07/2020 9:01 AM CDT
== END ==
LOC: US 12:21
PROVIDERS: ATTEND Family Medicine
DX: I70.202 Unspecified atherosclerosis of native arteries of extremities, left leg (principal); E21.3 Hyperparathyroidism, unspecified; E83.52 Hypercalcemia; E55.9 Vitamin D deficiency, unspecified; M81.0 Age-related osteoporosis without current pathological fracture; N18.9 Chronic kidney disease, unspecified; I10 Essential (primary) hypertension

== ENCOUNTER → 2020-02-20 | Outpatient (CLI) | payer MEDICARE, MEDICAID | LOC: LAB.O 16:27 | PROVIDERS: ATTEND Nurse Practitioner | DX: M06.9 Rheumatoid arthritis, unspecified (principal) ==

== ENCOUNTER → 2020-03-14 | Outpatient (CLI) | payer MEDICARE, MEDICAID ==
--- NOTE | 2020-03-14 14:53 | CT ---
EXAM DESCRIPTION: Chest w/o Contrast CLINICAL HISTORY: 74 years, Female, OTHER NONSPECIFIC ABNORMAL FINDING OF LUNG FLUID COMPARISON: November 25, 2018 TECHNIQUE: Thin-section noncontrast axial CT images are obtained according to our protocol. Reconstructed MPR images are created and reviewed as well. This exam was performed according to our departmental dose-optimization program, which includes automated exposure control, adjustment of the mA and/or kV according to patient size and/or use of iterative reconstruction technique. FINDINGS: Lung lopez are well expanded and essentially clear. On the left tiny amount of scarring is unchanged from November 2018 in the medial anterior left mid lung field. There is mild tenting of the hemidiaphragm and linear scarring at the anterior right lung base, also unchanged from prior study. No acute infiltrate or layering pleural effusion or peripheral mass or new pattern of metastatic disease identified. No significant bullous or emphysematous change noted and no abnormal bronchial wall thickening or central tumor mass noted. Soft tissue images demonstrate aortic and great vessel atherosclerosis without aneurysm. The thoracic inlet superior mediastinum as well as middle mediastinum and hilar structures are normal. Modest coronary artery calcification noted. Below the diaphragm small density in the region of the gallbladder neck suggest cholelithiasis. Interposition of the right colon anterior and lateral to the dome of the liver represents an anatomic variant. Bony spine again demonstrates moderate anterior wedging of the T6 vertebral body, unchanged from previous years study with mild degenerative changes throughout the anterior dorsal spine. No chest wall mass or destructive process seen. No abnormality of the right or left scapula noted. No blastic or lytic bony process evident. IMPRESSION: 1. Mild elevation of the right hemidiaphragm anteriorly and laterally and interposition of the colon between the diaphragm and liver, an anatomic variant. 2. Stable linear scarring in the medial anterior right lung base and in the medial mid left lung field, unchanged from previous years study. 3. Probable cholelithiasis 4. Modest great vessel and aortic calcification as well as coronary artery calcification. 5. Stable old T6 moderate anterior compression deformity. Electronically signed by: Deshawn Amin MD 03/14/2020 2:52 PM CDT
== END ==
LOC: CT 09:30
PROVIDERS: ATTEND Family Medicine
DX: R91.8 Other nonspecific abnormal finding of lung field (principal); K82.9 Disease of gallbladder, unspecified; M95.9 Acquired deformity of musculoskeletal system, unspecified

== ENCOUNTER → 2020-03-29 | Outpatient (CLI) | payer MEDICARE, MEDICAID ==
--- NOTE | 2020-03-31 12:29 | US ---
EXAM DESCRIPTION: Abdomen,Complete: Ultrasound. CLINICAL HISTORY: 74 years Femalenausea with vomiting COMPARISON: None Available. TECHNIQUE: Transabdominal scanning: grayscale and Doppler modes. FINDINGS: Gallbladder: Mild dilation. No echogenic stones. Echogenic polyp on the free wall measuring 5.7 mm with no acoustic shadowing. Borderline wall thickening 3.5 mm with no fluid. Nontender with transducer pressure. Common bile duct: 3.6 mm normal caliber. Liver: Normal echogenicity and 12.6 cm right lobe long axis. No focal lesions. Normal caliber of intrahepatic ducts. Hepatopedal flow in the portal vein which is 5 mm at the erik hepatis. Pancreas: Negative. Abdominal aorta: Normal caliber from the proximal segment to the distal bifurcation. Atherosclerotic calcifications. IVC: visualized; normal caliber. Spleen normal echogenicity; long axis measurement is 9.6 cm. Right kidney: Surgically removed. No fluid in the hepatorenal fossa. Left kidney: 9.6 x 5.2 x 4.6 cm; volume 119.1 mL. Normal cortical thickness and echogenicity. No echogenic stones or hydronephrosis. IMPRESSION: 1. Mild dilation of the gallbladder with 5.7 mm polyp. No sludge or stones. Borderline wall thickness with no tenderness. Normal caliber of the common bile duct. 2. Liver and pancreas are negative. Normal caliber of the abdominal aorta and IVC. 3. Left kidney is unremarkable. Previous right nephrectomy. No fluid in the right renal fossa. Electronically signed by: Zach Franco MD 03/31/2020 12:28 PM CDT
== END ==
LOC: US 14:00
DX: K82.4 Cholesterolosis of gallbladder (principal); R11.2 Nausea with vomiting, unspecified; Z90.5 Acquired absence of kidney

== ENCOUNTER → 2020-04-08 | Outpatient (CLI) | payer MEDICARE, MEDICAID | LOC: LAB.O 16:47 | PROVIDERS: ATTEND Nurse Practitioner | DX: M06.9 Rheumatoid arthritis, unspecified (principal) ==

== ENCOUNTER → 2020-06-20 | Outpatient (CLI) | payer MEDICARE, MEDICAID | LOC: LAB.O 13:54 | DX: R06.09 Other forms of dyspnea (principal) ==

== ENCOUNTER → 2020-06-27 | Outpatient (CLI) | payer MEDICARE, MEDICAID | LOC: LAB.O 13:01 | PROVIDERS: ATTEND Internal Medicine Endocrinology, Diabetes & Metabolism | DX: E21.3 Hyperparathyroidism, unspecified (principal); E83.52 Hypercalcemia; E55.9 Vitamin D deficiency, unspecified ==

== ENCOUNTER 2020-07-27 17:18 | Emergency (ER) | payer MEDICARE, MEDICAID ==
[2020-07-27] MEDS ORDERED: DEXAMETHASONE INJ 10 MG/ML VIAL IV ONE (17:53)
--- NOTE | 2020-07-27 17:53 | ED.PDOC ---
History of Present Illness - General Chief Complaint: Respiratory Problem Time Seen by Provider: 07/27/20 17:22 Source: patient, RN notes reviewed, Vital Signs reviewed, EMS notes reviewed Exam Limitations: no limitations - History of Present Illness Initial Comments: 74 yo F with hx of Afib comes in with the c/c of shortness of breath. Three days of body aches, generalized malaise, cough, now shortness of breath. Tested + for covid, got from son. Talked to her pcp who recommend she come to the ER for evaluation. denies chest pain. Allergies/Adverse Reactions: Allergies Atenolol Allergy (Verified 11/25/18 13:37) Calcium Chloride [From [employer]] Allergy (Verified 04/04/18 15:47) Calcium Versetamide Sodium [From [employer]] Allergy (Verified 04/04/18 15:47) Codeine Allergy (Verified 11/25/18 13:37) Gadoversetamide [From [employer]] Allergy (Verified 04/04/18 15:47) Gentamicin [From Gentamicin Sulfate IV] Allergy (Verified 06/05/17 13:24) Hives Leflunomide [From Arava] Allergy (Verified 11/25/18 13:37) Methotrexate Allergy (Verified 11/25/18 13:37) Penicillins Allergy (Verified 06/05/17 13:24) Other breaks out in blisters Sulfa Antibiotics Allergy (Verified 06/05/17 13:24) Vomitting Tofacitinib [From Xeljanz] Allergy (Verified 11/25/18 13:37) Zolpidem [From Ambien] Allergy (Verified 11/25/18 13:37) Meloxicam [From Mobic] Adverse Reaction (Severe, Verified 06/05/17 13:24) Hives Home Medications: Ambulatory Orders ALPRAZolam [Xanax] 1 mg PO DAILY PRN 06/05/14 Bupropion HCl [Wellbutrin Sr] 300 mg PO BID 06/05/14 Montelukast [Singulair] 10 mg PO DAILY 06/05/14 Tiotropium [place] Monohydrate [Spiriva Handihaler] 1 puff IN DAILY 06/05/14 Polyethylene Glycol 3350 [Miralax] 17 gm PO DAILY PRN 09/27/15 Folic Acid 1 mg PO BID 05/01/16 Pantoprazole Tablet [Protonix] 40 mg PO DAILY 03/26/16 Temazepam [Restoril] 30 mg PO PRN 03/26/16 Acetaminophen [Tylenol] 500 mg PO PRN PRN 04/13/16 Apixaban [Eliquis] 10 mg PO BID 04/13/16 Nebivolol HCl [Bystolic] 5 mg PO DAILY 04/13/16 Fluticasone/Salmeterol 250/50 [Advair 250/50 Diskus] 1 puff INH BID 05/06/16 Albuterol Sulfate [Ventolin Hfa] 90 mcg INH PRN 04/04/18 Cholecalciferol [D3 2000] 2,000 unit PO DAILY 04/04/18 Denosumab [Prolia] 60 mg SC MONTHLY 04/04/18 Hydroxychloroquine Sulfate [Hydroxychloroquine Sulfat] 200 mg PO BID 04/04/18 Linzess 290 mcg PO DAILY PRN 04/04/18 Mirabegron [Myrbetriq] 25 mg PO DAILY 04/04/18 Spironolactone 50 mg PO DAILY 04/04/18 Metoclopramide Tab [Reglan Tab] 5 mg PO ACHS #60 tab 04/09/18 Ondansetron HCl [Zofran] 4 mg PO Q6HR PRN #12 tab 04/09/18 levoFLOXacin [Levaquin] 500 mg PO Q24H #7 tab 04/09/18 metroNIDAZOLE [Flagyl] 500 mg PO Q8H #28 tab 04/09/18 Cyclobenzaprine HCl [Flexeril] 5 mg PO TID PRN #20 tab 11/25/18 Azithromycin 250 mg PO DAILY #6 tab 07/27/20 Dexamethasone [Decadron] 4 mg PO DAILY #5 tab 07/27/20 Review of Systems - Review of Systems Constitutional: States: malaise. Denies: chills, fever EENTM: States: throat pain. Denies: blurred vision, ear discharge, nose congestion, throat swelling Respiratory: States: cough, short of breath Cardiology: Denies: chest pain, palpitations, syncope Gastrointestinal/Abdominal: Denies: diarrhea, nausea, vomiting Genitourinary: Denies: dysuria, frequency, hematuria Musculoskeletal: States: muscle pain. Denies: joint pain, joint swelling, muscle stiffness, neck pain Skin: Denies: rash Neurological: Denies: headache, numbness, paresthesia, seizure, tingling, tremors Endocrine: Denies: unexplained weight gain, unexplained weight loss Hematologic/Lymphatic: Denies: easy bleeding, easy bruising Past Medical History (General) - Patient Medical History Hx Seizures: No Hx Stroke: No Hx Dementia: No Hx Asthma: Yes Hx of COPD: Yes Hx Cardiac Disorders: Yes - Atrial fib Hx Congestive Heart Failure: Yes Hx Pacemaker: No Hx Hypertension: Yes Hx Thyroid Disease: No Hx Diabetes: No Hx Gastroesophageal Reflux: No 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 Hx Cancer: No Hx of HIV: No Hx Hepatitis C: No Hx MRSA: No - Vaccination History Hx Tetanus, Diphtheria Vaccination: Yes Hx Influenza Vaccination: Yes Hx Pneumococcal Vaccination: Yes - Social History Hx Tobacco Use: Yes Hx Chewing Tobacco Use: No Hx Alcohol Use: No Hx Substance Use: No Hx Substance Use Treatment: No Hx Depression: No Hx Physical Abuse: No Hx Emotional Abuse: No Hx Suspected Abuse: No - Female History Patient : No Family Medical History - Family History Father Family History: No Known Living Status: Age at (years of age): 85 Cause of : colon cancer Hx Family Cancer: Yes - colon Physical Exam - Physical Exam General Appearance: Alert, Comfortable, No apparent distress, Well Developed, Well Groomed, Well Hydrated, Well Nourished Eyes, Ears, Nose, Throat Exam: PERRL/EOMI, normal ENT inspection Neck: non-tender, full range of motion, supple, normal inspection Respiratory: chest non-tender, lungs clear, normal breath sounds, no respiratory distress, no accessory muscle use Cardiovascular/Chest: normal peripheral pulses, regular rate, rhythm, no edema, no gallop, no JVD, no murmur Peripheral Pulses: radial,right: 2+, radial,left: 2+ Gastrointestinal/Abdominal: normal bowel sounds, non tender, soft, no organomegaly, no pulsatile mass Rectal Exam: deferred Extremity: normal range of motion, non-tender, normal inspection, no pedal edema, no calf tenderness, normal capillary refill Neurologic: reed polisher II-XII nml as tested, no motor/sensory deficits, alert, normal mood/affect, oriented x 3 Skin Exam: normal color, warm/dry Progress - Progress Progress: 07/27/20 19:32 The data reviewed when caring for this patient included: nurse notes, prior records, etc. The history and assessments from nurses notes were reviewed and considered, and the patient's home medication list was also reviewed and considered. My assessment and the results of testing completed here in the ED were discussed with the patient. All questions were answered, and they express understanding of my assessment and the plan. They have been instructed to return if their symptoms worsen, and have been asked to follow up with their primary care physician to recheck today's presenting complaint. Strict return precautions given. I have reviewed medication, benefits, alternatives and side effects. Patient decided to proceed with medication.patient resting comfortably. saturations 100% on RA. vss patient discharged home in stable condition. Julissa Gamboa DO #[id number] 07/27/20 19:33 - Results/Orders Results/Orders: 07/27/20 17:30 EKG STAT Pulse Ox, Continuous Monitoring STAT 07/28/20 17:30 Pulse Ox, Continuous Monitoring STAT 07/29/20 17:30 Pulse Ox, Continuous Monitoring STAT Laboratory Results WBC 5.1 K/mm3 (4.8-10.8) 07/27/20 18:00 RBC 4.51 M/mm3 (4.20-5.40) 07/27/20 18:00 Hgb 14.9 gm/dL (12.0-16.0) 07/27/20 18:00 Hct 43.2 % (36.0-47.0) 07/27/20 18:00 MCV 95.8 fl (81.0-99.0) 07/27/20 18:00 MCH 33.0 pg (27.0-31.0) H 07/27/20 18:00 MCHC 34.4 g/dL (33.0-37.0) 07/27/20 18:00 RDW 13.9 % (11.5-14.5) 07/27/20 18:00 Plt Count 173 K/mm3 (130-400) 07/27/20 18:00 MPV 9.6 fl (7.40-10.4) 07/27/20 18:00 Absolute Neuts (auto) 4.00 K/uL (1.8-6.8) 07/27/20 18:00 Absolute Lymphs (auto) 0.60 K/uL (1.0-3.4) L 07/27/20 18:00 Absolute Monos (auto) 0.50 K/uL (0.2-0.8) 07/27/20 18:00 Absolute Eos (auto) 0.00 K/uL (0.0-0.4) 07/27/20 18:00 Absolute Basos (auto) 0.00 K/uL (0.0-0.1) 07/27/20 18:00 Neutrophils % 78.5 % (42.0-78.0) H 07/27/20 18:00 Lymphocytes % 11.6 % (20.0-50.0) L 07/27/20 18:00 Monocytes % 9.4 % (2.0-9.0) H 07/27/20 18:00 Eosinophils % 0.0 % (1.0-5.0) L 07/27/20 18:00 Basophils % 0.5 % (0.0-2.0) 07/27/20 18:00 PT 10.5 SECONDS (9.0-10.9) 07/27/20 18:00 INR 1.06 (0.9-1.15) 07/27/20 18:00 PTT (SP) 34.0 SECONDS (21.8-31.6) H 07/27/20 18:00 D-Dimer, Quantitative 193.0 ng/ml (131-400) 07/27/20 18:00 Sodium 134 mmol/L (135-145) L 07/27/20 18:00 Potassium 4.3 mmol/L (3.6-5.0) 07/27/20 18:00 Chloride 98 mmol/L (101-111) L 07/27/20 18:00 Carbon Dioxide 23 mmol/L (21-31) 07/27/20 18:00 Anion Gap 17.3 (12-18) 07/27/20 18:00 BUN 21 mg/dL (7-18) H 07/27/20 18:00 Creatinine 1.50 mg/dL (0.6-1.3) H 07/27/20 18:00 BUN/Creatinine Ratio 14.0 (10-20) 07/27/20 18:00 Random Glucose 112 mg/dL (70-105) H 07/27/20 18:00 Serum Osmolality 272.0 mOsm/L (275-295) L 07/27/20 18:00 Calcium 9.5 mg/dL (8.4-10.2) 07/27/20 18:00 Magnesium 1.9 mg/dL (1.8-2.5) 07/27/20 18:00 Total Bilirubin 1.1 mg/dL (0.2-1.0) H 07/27/20 18:00 AST 47 IU/L (10-42) H 07/27/20 18:00 ALT 33 IU/L (10-60) 07/27/20 18:00 Alkaline Phosphatase 51 IU/L (42-121) 07/27/20 18:00 LD Total 194 IU/L (91-180) H 07/27/20 18:00 Creatine Kinase 48 IU/L (26-140) 07/27/20 18:00 Troponin I 0.02 ng/mL (0.01-0.05) 07/27/20 18:00 C-Reactive Protein 4.3 mg/dL (0-1.0) H 07/27/20 18:00 B-Natriuretic Peptide 59.8 pg/ml (0-100) 07/27/20 18:00 Serum Total Protein 7.2 gm/dL (6.4-8.2) 07/27/20 18:00 Albumin 3.8 g/dl (3.2-5.5) 07/27/20 18:00 Globulin 3.4 gm/dL (2.3-3.5) 07/27/20 18:00 Albumin/Globulin Ratio 1.1 (1.1-1.9) 07/27/20 18:00 - EKG/XRAY/CT EKG: Sinus Comments: hr 69, normal intervals no ischemia XRAY: chest - right lung atelectasis, encourage patient to use insp spirometry Departure - Departure Clinical Impression: COVID-19 Time of Disposition: 18:52 Disposition: Discharge to Home or Self Care Departure Forms: ED Discharge - Pt. Copy, Patient Portal Self Enrollment Instructions: Cough, Adult (DC), Shortness of Breath (Dyspnea), Breathing Exercises Diet: resume usual diet Activity: increase activity as tolerated Referrals: Deshawn Alonso MD [Primary Care Provider] - 1-2 Weeks Prescriptions: Azithromycin 250 mg PO DAILY #6 tab Dexamethasone [Decadron] 4 mg PO DAILY #5 tab Home Medications: Ambulatory Orders ALPRAZolam [Xanax] 1 mg PO DAILY PRN 06/05/14 Bupropion HCl [Wellbutrin Sr] 300 mg PO BID 06/05/14 Montelukast [Singulair] 10 mg PO DAILY 06/05/14 Tiotropium [place] Monohydrate [Spiriva Handihaler] 1 puff IN DAILY 06/05/14 Polyethylene Glycol 3350 [Miralax] 17 gm PO DAILY PRN 09/27/15 Folic Acid 1 mg PO BID 01/19/16 Pantoprazole Tablet [Protonix] 40 mg PO DAILY 03/26/16 Temazepam [Restoril] 30 mg PO PRN 03/26/16 Acetaminophen [Tylenol] 500 mg PO PRN PRN 04/13/16 Apixaban [Eliquis] 10 mg PO BID 04/13/16 Nebivolol HCl [Bystolic] 5 mg PO DAILY 04/13/16 Fluticasone/Salmeterol 250/50 [Advair 250/50 Diskus] 1 puff INH BID 05/06/16 Albuterol Sulfate [Ventolin Hfa] 90 mcg INH PRN 04/04/18 Cholecalciferol [D3 2000] 2,000 unit PO DAILY 04/04/18 Denosumab [Prolia] 60 mg SC MONTHLY 04/04/18 Hydroxychloroquine Sulfate [Hydroxychloroquine Sulfat] 200 mg PO BID 04/04/18 Linzess 290 mcg PO DAILY PRN 04/04/18 Mirabegron [Myrbetriq] 25 mg PO DAILY 04/04/18 Spironolactone 50 mg PO DAILY 04/04/18 Metoclopramide Tab [Reglan Tab] 5 mg PO ACHS #60 tab 04/09/18 Ondansetron HCl [Zofran] 4 mg PO Q6HR PRN #12 tab 04/09/18 levoFLOXacin [Levaquin] 500 mg PO Q24H #7 tab 04/09/18 metroNIDAZOLE [Flagyl] 500 mg PO Q8H #28 tab 04/09/18 Cyclobenzaprine HCl [Flexeril] 5 mg PO TID PRN #20 tab 11/25/18 Azithromycin 250 mg PO DAILY #6 tab 07/27/20 Dexamethasone [Decadron] 4 mg PO DAILY #5 tab 07/27/20
--- NOTE | 2020-07-27 18:23 | RAD ---
EXAM: Chest,1 View CLINICAL INDICATION: COVID-19 COMPARISON: There is no previous study for comparison. FINDINGS: A single view of the chest was obtained. Atherosclerotic calcifications are noted involving the aorta. The heart size is normal. The pulmonary vascularity is unremarkable. There is mild atelectasis in the right lung base. The lungs are otherwise clear. There is no pneumothorax or pleural effusion. IMPRESSION: Mild atelectasis in the right lung base. Otherwise, no acute process in the chest. Electronically signed by: Wolf Vang MD 07/27/2020 6:22 PM TECHNOLOGY ANALYST
[2020-07-27 21:07] VITALS: BP 126/69; TEMP 98.1; O2SAT 96
== END 2020-07-27 20:50 | disposition home or self-care (01) ==
LOC: ER 17:18
DX: U07.1 COVID-19 (principal); I48.91 Unspecified atrial fibrillation; J44.9 Chronic obstructive pulmonary disease, unspecified; I50.9 Heart failure, unspecified; I11.0 Hypertensive heart disease with heart failure; Z87.891 Personal history of nicotine dependence; Z79.899 Other long term (current) drug therapy; Z79.01 Long term (current) use of anticoagulants; Z88.8 Allergy status to other drugs, medicaments and biological substances; Z88.2 Allergy status to sulfonamides; Z88.0 Allergy status to penicillin; Z88.5 Allergy status to narcotic agent
CPT/HCPCS: 36415; 71045; 80053; 82550; 83615; 83735; 83880; 84484; 85025; 85379; 85610; 85730; 86140; 93005; J1100

== ENCOUNTER → 2020-08-01 | Outpatient (CLI) | payer MEDICARE, MEDICAID | LOC: GMAM 14:38 | PROVIDERS: ATTEND Family Medicine | DX: U07.1 COVID-19 (principal); R71.8 Other abnormality of red blood cells; R09.02 Hypoxemia ==

== ENCOUNTER → 2020-09-30 | Outpatient (CLI) | payer MEDICARE, MEDICAID ==
--- NOTE | 2020-09-30 15:45 | CT ---
EXAM DESCRIPTION: Head CLINICAL HISTORY: 75 years Female, HEADACHE COMPARISON: MRI brain 04/20/2018. CT head 03/26/2016. TECHNIQUE: Axial images obtained from the skull base to the vertex without intravenous contrast with images. Coronal and sagittal reformations provided. This exam was performed according to our departmental dose-optimization program, which includes automated exposure control, adjustment of the mA and/or kV according to patient size and/or use of iterative reconstruction technique. Time Last Seen Well (If known) for Code Stroke: n/a FINDINGS: Brain Parenchyma, ventricles, meninges, and extra-axial spaces: Mild atherosclerotic vascular. Mild Nonspecific white matter hypodensities in the cerebral hemispheres likely related to ischemic small vessel disease. Possible difficulty differentiating a small acute infarction given these hypodensities. No acute intracranial hemorrhage. No abnormal extra-axial fluid collection. Vascular: Atherosclerosis is within the carotid siphons. Calvarium, paranasal sinuses, mastoids, and orbits: Calvarium intact. Visualized paranasal sinuses and mastoid air cells clear. IMPRESSION: 1. No acute intracranial abnormality. 2. Senescent changes. Electronically signed by: Florentino Galloway MD 09/30/2020 3:43 PM [facility]
== END ==
LOC: LAB.O 13:30
PROVIDERS: ATTEND Family Medicine
DX: R51.9 Headache, unspecified (principal); G31.1 Senile degeneration of brain, not elsewhere classified